=== PATIENT | female | born 1940 | race Caucasian/White ===

== ENCOUNTER 2022-09-15 14:11 | Observation (INO) | payer OTHER, MEDICAID, SELFPAY ==
[2022-09-15] VITALS (10 sets, daily range): BP systolic 139–185; BP diastolic 71–95; PULSE 61–86; RESP 15–20; TEMP 36.4–36.8; O2SAT 80–95; BMI 26.6
--- NOTE | 2022-09-15 14:28 | CRLHL7_ITS ---
For Patients: As a result of the Cures Act, medical imaging exams and procedure reports are released immediately into your electronic medical record. You may view this report before your referring provider. If you have questions, please contact your health care provider. Indication: Fall. Technique: Right shoulder 2 views. Comparison: None. Findings: Acute, comminuted, mildly displaced, impaction fracture of the right humeral neck. The glenohumeral joint is congruent. Moderate acromioclavicular joint arthrosis. Questionable right posterior 3rd rib fracture, age-indeterminate. The remainder of the imaged thorax is unremarkable. Impression: Acute, mildly displaced, impaction fracture of the right humeral neck. No dislocation. Questionable age-indeterminate right posterior 3rd rib fracture Dictated by Wiley Dunham MD @ 09/15/2022 3:43:27 PM (Electronically Signed)
--- NOTE | 2022-09-15 14:29 | CRLHL7_ITS ---
For Patients: As a result of the Century Cures Act, medical imaging exams and procedure reports are released immediately into your electronic medical record. You may view this report before your referring provider. If you have questions, please contact your health care provider. INDICATION: Fall, injury TECHNIQUE: CT head without contrast. COMPARISON: None. FINDINGS: CSF spaces: Within normal limits for age. Brain parenchyma: No intracranial bleed or mass effect. Cerebral atrophy with moderate low-density in the deep white matter. Arndt-white differentiation is normal. Skull base and calvarium: Opacified right maxillary sinus. Atherosclerosis. The visualized orbits are grossly unremarkable. No skull fractures. IMPRESSION: 1. No calvarial fracture or intracranial bleed. 2. Cerebral atrophy with nonspecific white matter disease, likely microangiopathy. 3. Right maxillary sinus disease. Please note that all CT scans at this facility use dose modulation, iterative reconstruction, and/or weight-based dosing when appropriate to reduce radiation dose to as low as reasonably achievable. Dictated by Rishabh Ace MD @ 09/15/2022 3:32:30 PM (Electronically Signed)
--- NOTE | 2022-09-15 14:29 | CRLHL7_ITS ---
For Patients: As a result of the Cures Act, medical imaging exams and procedure reports are released immediately into your electronic medical record. You may view this report before your referring provider. If you have questions, please contact your health care provider. INDICATION: Fall, injury TECHNIQUE: CT cervical spine without contrast. COMPARISON: None FINDINGS: Vertebrae: Alignment is normal. There are no fractures or suspicious bony lesions. Discs and facet joints: Facet hypertrophy C2-3 without significant stenosis. Facet hypertrophy with posterior osteophytes at C3-4 causing moderate left foraminal stenosis. Facet hypertrophy C4-5 causing mild left foraminal stenosis. Facet hypertrophy C5-6 with mild bilateral foraminal stenosis. Facet hypertrophy with posterior osteophytes at C6-7 causing moderate right foraminal stenosis. Facet hypertrophy C7-T1 without significant stenosis. Extraspinal findings: Atherosclerosis. IMPRESSION: Multilevel degenerative disc disease without evidence of cervical spine fracture. Please note that all CT scans at this facility use dose modulation, iterative reconstruction, and/or weight-based dosing when appropriate to reduce radiation dose to as low as reasonably achievable. Dictated by Rishabh Ace MD @ 09/15/2022 3:41:11 PM (Electronically Signed)
[2022-09-15] MEDS: HYDROmorphone 0.5 mg/0.5 ml inj IVP (14:53)
[2022-09-15 14:55] LABS: Basophils Absolute Auto 0.01 K/uL (0.00-0.30); Basophils Percent Auto 0.1 % (0.0-3.0); Eosinophils Absolute Auto 0.24 K/uL (0.00-0.50); Eosinophils Percent Auto 2.2 % (0.0-7.0); Hematocrit 45.9 % (33.0-51.0); Hemoglobin* 14.8 gm/dL (12.0-16.0); Immature Granulocytes Abs Auto 0.04 K/uL (0.00-0.30); Immature Granulocytes Pct Auto 0.4 %; Lymphocytes Percent Auto 19.2 % (20-44); Mean Corpuscular HGB Conc 32 gm/dL (32-36); Mean Corpuscular Hemoglobin 29 pg (26-34); Mean Corpuscular Volume 90 fL (80-100); Monocytes Percent Auto 5.7 % (0.0-11.0); Neutrophils Percent Auto 72.4 % (42.0-72.0); Platelet Count* 238 K/uL (140-440); RDW Coefficient of Variation % 12.7 % (11.5-15.5); Red Blood Count 5.09 m/uL (4.00-5.20); White Blood Count* 10.97 K/uL (4.50-11.00)
--- NOTE | 2022-09-15 14:55 | ED.UPPEXIN ---
HPI - Extremity Injury (Upper) General Date Seen: 09/15/22 Chief Complaint: Extremity Pain/Injury, Upper Stated Complaint: Fall R shoulder pain Time Seen by Provider: 09/15/22 14:20 Source: patient Mode of arrival: ambulatory Limitations: no limitations History of Present Illness HPI narrative: Patient is an 82-year-old female presents [facility] by EMS [facility] [place], she fell from the wheelchair onto the floor. Onto her right shoulder, she is not complaining of any head or neck pain is comparing vehemently of pain in her right shoulder, EMS did not give her anything for pain on the way over. She denies any other injury to her chest, arms, just whenever she moves her right extremity which she has dominant she describes pain. She said she may really slipped and fell out of her chair, she did not have a syncopal episode, complaint: injury to: right and shoulder Onset (ago): minute(s) Other injuries: none Hand dominance: Right Place: home Severity: moderate Relieving factors: none Exacerbating factors: movement of extremity Context: fall Associated symptoms: denies other symptoms Related Data Home Medications Medication Instructions Recorded Confirmed VITAMIN PO 09/15/22 albuterol sulfate 90 mcg/actuation 2 puff inhalation QID PRN dyspnea 09/15/22 09/15/22 aerosol inhaler amlodipine 5 mg tablet 5 mg PO DAILY blood pressure 09/15/22 09/15/22 aspirin 81 mg tablet,delayed 81 mg PO DAILY 09/15/22 09/15/22 release celecoxib 100 mg capsule 100 mg PO BID pain 09/15/22 09/15/22 famotidine 20 mg tablet 20 mg PO BID 09/15/22 09/15/22 ferrous sulfate 325 mg (65 mg 325 mg PO DAILY 09/15/22 09/15/22 iron) tablet (FeroSul) glipizide 5 mg tablet, extended 5 mg PO DAILY 09/15/22 09/15/22 release 24 hr insulin glargine 100 unit/mL (3 64 unit subcut DAILY 09/15/22 09/15/22 mL) subcutaneous pen (Lantus Solostar U-100 Insulin) lisinopril 40 mg tablet 40 mg PO DAILY blood pressure 09/15/22 09/15/22 metoprolol succinate 50 mg 50 mg PO DAILY blood pressure 09/15/22 09/15/22 tablet,extended release 24 hr omeprazole 20 mg capsule,delayed 20 mg PO DAILY 09/15/22 09/15/22 release sertraline 100 mg tablet 100 mg PO DAILY depressive disorder 09/15/22 09/15/22 simvastatin 20 mg tablet 20 mg PO DAILY 09/15/22 09/15/22 Allergies Allergy/AdvReac Type Severity Reaction Status Date / Time bupropion [From Wellbutrin] Allergy Verified 09/15/22 14:46 morphine Allergy Verified 09/15/22 14:46 Sulfa (Sulfonamide Allergy Verified 09/15/22 14:46 Antibiotics) Review of Systems Status of ROS: Reports: 10 or more systems reviewed and unremarkable except as noted in History and below PFSH PFS Social History Smoking Status: Never smoker How often do you have a drink containing alcohol: never AUDIT-C Alcohol total score: 0 Non-prescribed substance use: denies use Exam Narrative: Exam Narrative: Patient is a very nice 82-year-old female, describing pain in her right shoulder, her shoulder so some swelling on the right shoulder, I might ate about really examine her right extremity, due to pain, I am able the however stabilize her elbow when she can not move her lower arm, through full range of motion, both flexion extension supination pronation there is no evident injury to the right wrist, 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 No evidence of any pain on palpation of her back but she is complaining bitterly of pain in her right shoulder when I asked her to set up. Will palpable and percussion reviews not pain over her cervical spine or thoracic area, her abdomen is soft there is no guarding obesity is noted, she moves all lower extremities independently and well. Const: Vital Signs, click to edit/add: Vital Signs - 24 hr 09/15/22 14:14 09/15/22 14:58 09/15/22 15:27 Temperature 98.2 F Pulse Rate 76 Pulse Rate [Right Pulse Oximeter] 61 Respiratory Rate 18 Blood Pressure 139/95 H Blood Pressure [Le ft Upper Arm] 185/73 H Pulse Oximetry 95 85 L Oxygen Delivery Me thod Room Air Oxygen Flow Rate 09/15/22 15:30 09/15/22 16:00 09/15/22 16:30 Temperature Pulse Rate 69 78 83 Pulse Rate [Right Pulse Oximeter] Respiratory Rate Blood Pressure Blood Pressure [Le ft Upper Arm] Pulse Oximetry 85 L 92 93 Oxygen Delivery Me thod Oxygen Flow Rate 09/15/22 15:27 Temperature Pulse Rate Pulse Rate [Right Pulse Oximeter] Respiratory Rate Blood Pressure Blood Pressure [Le ft Upper Arm] Pulse Oximetry 80 L Oxygen Delivery Me thod Room Air Oxygen Flow Rate 2 Documenting provider has reviewed patient's vital signs: yes Course Reevaluation(s) Reevaluation #1: Patient is evidence of the humeral head fracture, appears to be no dislocation, given her status we will admit to the hospital put her in a sling, explained this to her. Did not see any evidence of abnormality on the CT. Vital Signs Vital signs: Initial Vital Signs Temperature 98.2 F 09/15/22 14:14 Temperature Source Temporal Artery Scan 09/15/22 14:14 Pulse Rate 61 09/15/22 14:14 Respiratory Rate 18 09/15/22 14:14 Blood Pressure 185/73 H 09/15/22 14:14 Blood Pressure Mean 110 09/15/22 14:14 Blood Pressure Position Supine 09/15/22 14:14 Pulse Oximetry 95 09/15/22 14:14 Oxygen Delivery Method 09/15/22 14:14 Vital Signs Temperature 98.2 F 09/15/22 14:14 Pulse Rate 61 09/15/22 14:14 Respiratory Rate 18 09/15/22 14:14 Blood Pressure 185/73 H 09/15/22 14:14 Pulse Oximetry 95 09/15/22 14:14 Oxygen Delivery Method 09/15/22 14:14 Temperature 98.2 F 09/15/22 14:14 Pulse Rate 83 09/15/22 16:30 Respiratory Rate 18 09/15/22 14:14 Blood Pressure 139/95 H 09/15/22 14:58 Pulse Oximetry 93 09/15/22 16:30 Oxygen Delivery Method 09/15/22 15:27 Oxygen Flow Rate 2 09/15/22 15:27 MDM - Extremity Injury (Upper) MDM Narrative Medical decision making narrative: Discussed with her that I believe she likely fractured right shoulder, most likely her humerus, could not rule out a clavicular fracture, and x-rays needed, given the history of the fall and the power he did to cause this injury, I would recommend head and neck CT, which she was initially against, but then agreed to this. Medical Records Attestation: I reviewed the patient's medical records. Lab Data Attestation: I reviewed the patient's lab results. Labs: Lab Results 09/15/22 09/15/22 09/15/22 Range/Units 14:40 14:40 14:40 WBC 10.97 (4.50-11.00) K/uL RBC 5.09 (4.00-5.20) m/uL Hgb 14.8 (12.0-16.0) gm/dL Hct 45.9 (33.0-51.0) % MCV 90 (80-100) fL MCH 29 (26-34) pg MCHC 32 (32-36) gm/dL RDW Coeff of Amy 12.7 (11.5-15.5) % Plt Count 238 (140-440) K/uL Neut % (Auto) 72.4 H (42.0-72.0) % Lymph % (Auto) 19.2 L (20-44) % Hendricks % (Auto) 5.7 (0.0-11.0) % Eos % (Auto) 2.2 (0.0-7.0) % Baso % (Auto) 0.1 (0.0-3.0) % Neut # (Auto) 7.90 H (1.7-7.0) K/uL Lymph # (Auto) 2.10 (0.90-2.90) K/uL Hendricks # (Auto) 0.60 (0.00-0.90) K/UL Eos # (Auto) 0.24 (0.00-0.50) K/uL Baso # (Auto) 0.01 (0.00-0.30) K/uL INR 0.90 L (0.91-1.10) APTT 20 L (23-33) Seconds Sodium 136 (135-149) mmol/L Potassium 4.8 (3.6-5.1) mmol/L Chloride 99 (96-114) mmol/L Carbon Dioxide 30 (20-32) mmol/L BUN 23 (7-30) mg/dL Creatinine 0.8 (0.5-1.5) mg/dL Estimated Creat Clear 37.68 Estimated GFR 73 ml/min Glucose 394 H* (60-115) mg/dL Calcium 9.8 (8.4-10.6) mg/dL SARS-CoV-2 (PCR) (Negative) 09/15/22 Range/Units 15:58 WBC (4.50-11.00) K/uL RBC (4.00-5.20) m/uL Hgb (12.0-16.0) gm/dL Hct (33.0-51.0) % MCV (80-100) fL MCH (26-34) pg MCHC (32-36) gm/dL RDW Coeff of Amy (11.5-15.5) % Plt Count (140-440) K/uL Neut % (Auto) (42.0-72.0) % Lymph % (Auto) (20-44) % Hendricks % (Auto) (0.0-11.0) % Eos % (Auto) (0.0-7.0) % Baso % (Auto) (0.0-3.0) % Neut # (Auto) (1.7-7.0) K/uL Lymph # (Auto) (0.90-2.90) K/uL Hendricks # (Auto) (0.00-0.90) K/UL Eos # (Auto) (0.00-0.50) K/uL Baso # (Auto) (0.00-0.30) K/uL INR (0.91-1.10) APTT (23-33) Seconds Sodium (135-149) mmol/L Potassium (3.6-5.1) mmol/L Chloride (96-114) mmol/L Carbon Dioxide (20-32) mmol/L BUN (7-30) mg/dL Creatinine (0.5-1.5) mg/dL Estimated Creat Clear Estimated GFR ml/min Glucose (60-115) mg/dL Calcium (8.4-10.6) mg/dL SARS-CoV-2 (PCR) Negative SARS-CoV-2 (Negative) Imaging Data CT scan - head: Attestation: I have reviewed the pertinent imaging results. My impression: Negative head CT, chronic changes seen and cervical spine CT humeral head fracture. Radiologist's impression: Patient: MAHNAZ CARBALLO Facility:?[facility] Patient ID:?[id number] Site Patient ID:?[id number]. Site :?[id number] Study:?CT Head WO-09/15/2022 3:16:45 PM Ordering Physician:Dalila Jaramillo Final Report: INDICATION: Fall, injury TECHNIQUE: CT head without contrast. COMPARISON: None. FINDINGS: CSF spaces: Within normal limits for age. Brain parenchyma: No intracranial bleed or mass effect. Cerebral atrophy with moderate low-density in the deep white matter. Arndt-white differentiation is normal. Skull base and calvarium: Opacified right maxillary sinus. Atherosclerosis. The visualized orbits are grossly unremarkable. No skull fractures. IMPRESSION: 1. No calvarial fracture or intracranial bleed. 2. Cerebral atrophy with nonspecific white matter disease, likely microangiopathy. 3. Right maxillary sinus disease. Please note that all CT scans at this facility use dose modulation, iterative reconstruction, and/or weight-based dosing when appropriate to reduce radiation dose to as low as reasonably achievable. Dictated by Rishabh Ace MD @ 09/15/2022 3:32:30 PM (Electronic Signature) Patient: MAHNAZ CARBALLO Facility:?[facility] Patient ID:?[id number] Site Patient ID:?[id number]. Site :?[id number] Study:?CT Spine Cervical WO-09/15/2022 3:17:13 PM Ordering Physician:Dalila Jaramillo Final Report: INDICATION: Fall, injury TECHNIQUE: CT cervical spine without contrast. COMPARISON: None FINDINGS: Vertebrae: Alignment is normal. There are no fractures or suspicious bony lesions. Discs and facet joints: Facet hypertrophy C2-3 without significant stenosis. Facet hypertrophy with posterior osteophytes at C3-4 causing moderate left foraminal stenosis. Facet hypertrophy C4-5 causing mild left foraminal stenosis. Facet hypertrophy C5-6 with mild bilateral foraminal stenosis. Facet hypertrophy with posterior osteophytes at C6-7 causing moderate right foraminal stenosis. Facet hypertrophy C7-T1 without significant stenosis. Extraspinal findings: Atherosclerosis. IMPRESSION: Multilevel degenerative disc disease without evidence of cervical spine fracture. Please note that all CT scans at this facility use dose modulation, iterative reconstruction, and/or weight-based dosing when appropriate to reduce radiation dose to as low as reasonably achievable. Dictated by Rishabh Ace MD @ 09/15/2022 3:41:11 PM (Electronic Signature) Patient: MAHNAZ CARBALLO Facility:?[facility] Patient ID:?[id number] Site Patient ID:?[id number]. Site :?[id number] Study:?XRay Shoulder Right 2V-09/15/2022 3:22:05 PM Ordering Physician:Dalila Jaramillo Final Report: Indication: Fall. Technique: Right shoulder 2 views. Comparison: None. Findings: Acute, comminuted, mildly displaced, impaction fracture of the right humeral neck. The glenohumeral joint is congruent. Moderate acromioclavicular joint arthrosis. Questionable right posterior 3rd rib fracture, age-indeterminate. The remainder of the imaged thorax is unremarkable. Impression: Acute, mildly displaced, impaction fracture of the right humeral neck. No dislocation. Questionable age-indeterminate right posterior 3rd rib fracture Dictated by Wiley Dunham MD @ 09/15/2022 3:43:27 PM Discharge Plan Discharge Clinical Impression: Closed rib fracture, Fracture of head of humerus Patient Disposition: Admitted As Inpatient Condition: Stable
[2022-09-15 15:13] LABS: Slide Review Reflex No
[2022-09-15 15:16] LABS: Chloride* 99 mmol/L (96-114); Potassium* 4.8 mmol/L (3.6-5.1); Sodium* 136 mmol/L (135-149)
[2022-09-15 15:18] LABS: Prothrombin Time 12.7 Seconds
[2022-09-15 15:19] LABS: Blood Urea Nitrogen* 23 mg/dL (7-30); Carbon Dioxide* 30 mmol/L (20-32); Creatinine* 0.8 mg/dL (0.5-1.5); Est. Creatinine Clearance* 37.68; Estimated Glomerular Filt Rate 73 ml/min; Partial Thromboplastin Time* 20 Seconds (23-33)
[2022-09-15 15:20] LABS: Calcium* 9.8 mg/dL (8.4-10.6)
[2022-09-15 15:21] LABS: Glucose* 394 mg/dL (60-115)
[2022-09-15] MEDS: ONDANSETRON 2 MG/ML inj 4 MG IVP (15:26)
[2022-09-15 16:38] LABS: SARS PCR* Negative SARS-CoV-2 (Negative)
--- NOTE | 2022-09-15 18:40 | P.IMHP_ITS ---
Hospitalist- H&P: HPI History of Present Illness Time Seen by Provider: 18:00 Date Seen: 09/15/22 Chief complaint: Fall R shoulder pain Narrative: Faina Nation is a 82 year old female who presented through the emergency department after a fall. She is still healing from a right pubic rami fracture about a month and a half ago and was using her walker to get to the bathroom. On the way back from the bathroom she was transferring from the walker into the chair when her legs got twisted around in the walker and she fell onto her right shoulder. She has pain only in the right shoulder itself and no where else. She denies hitting her head or loss of consciousness. He denies any recent illness. She notes that it has been more difficult for her to live on her own because she tries to be really careful, but she still falls. She tells me that she is not ready to move into assisted living yet though. She notes that even with the pubic rami fracture she did not need to go to a custodial, but was able to go right back home. She did spend some time at the [facility] last month after that fall, but requested to come to our ER instead because she does not like the [facility]. Review of Systems Status of ROS: Reports: 10 or more systems reviewed and unremarkable except as noted in History and below [facility] Medical History (Updated 09/15/22 @ 20:18 by Lexus Gomez MD) Cerebral atrophy Closed fracture of ramus of right pubis (~08/01/22) COPD (chronic obstructive pulmonary disease) Dementia Depression Diabetes 1.5, managed as type 1 Fall (~06/25/22) Fibula fracture (~08/01/22) GERD (gastroesophageal reflux disease) Gout Hyperlipidemia Hypertension Hypomagnesemia Iron deficiency anemia Left rib fracture (~08/01/22) Leg weakness Spinal stenosis Splenic artery aneurysm Urinary incontinence UTI (urinary tract infection) (~08/01/22) Vitamin D deficiency Family History (Updated 09/15/22 @ 17:51 by Lexus Gomez MD) Father Colon cancer Sister Diabetes Brother Throat cancer Social History (Updated 09/15/22 @ 18:44 by Lexus Gomez MD) Narrative: Living in a senior apartment at [facility]. She has help with medications and cleaning. Denies tob, EtOH, recreational drugs. POLST states DNR/DNI. Highest level of school completed/degree received: high school graduate Smoking Status: Never smoker How often do you have a drink containing alcohol: never AUDIT-C Alcohol total score: 0 Non-prescribed substance use: denies use Meds Home Medications and Allergies Home Medications Medication Instructions Recorded Confirmed Type albuterol sulfate 90 mcg/actuation 2 puff inhalation QID PRN dyspnea 09/15/22 09/15/22 History aerosol inhaler amlodipine 5 mg tablet 5 mg PO DAILY blood pressure 09/15/22 09/15/22 History aspirin 81 mg tablet,delayed 81 mg PO DAILY 09/15/22 09/15/22 History release bismuth subsalicylate 262 mg 2 tab PO Q6H PRN diarrhea 09/15/22 09/15/22 History chewable tablet (Bismatrol) calcium carbonate 300 mg (750 mg) 1 tab PO Q6H PRN 09/15/22 09/15/22 History chewable tablet (Antacid Extra Strength (calcium carb)) celecoxib 100 mg capsule 100 mg PO BID pain 09/15/22 09/15/22 History cholecalciferol (vitamin D3) 125 125 mcg PO DAILY 09/15/22 09/15/22 History mcg (5,000 unit) capsule famotidine 20 mg tablet 20 mg PO DAILY 09/15/22 09/15/22 History ferrous sulfate 325 mg (65 mg 325 mg PO DAILY 09/15/22 09/15/22 History iron) tablet (FeroSul) fluticasone furoate 200 1 ea inhalation DAILY 09/15/22 09/15/22 History mcg-vilanterol 25 mcg/dose inhalation powder (Breo Ellipta) glipizide 5 mg tablet, extended 5 mg PO DAILY 09/15/22 09/15/22 History release 24 hr insulin glargine 100 unit/mL (3 64 unit subcut Q24H 09/15/22 09/15/22 History mL) subcutaneous pen (Lantus Solostar U-100 Insulin) lisinopril 40 mg tablet 40 mg PO DAILY blood pressure 09/15/22 09/15/22 History loperamide 2 mg tablet 2 mg PO QID PRN 09/15/22 09/15/22 History (Anti-Diarrheal (loperamide)) metoprolol succinate 50 mg 50 mg PO DAILY blood pressure 09/15/22 09/15/22 History tablet,extended release 24 hr omeprazole 20 mg capsule,delayed 20 mg PO DAILY 09/15/22 09/15/22 History release oxycodone 5 mg tablet 5 mg PO Q4H PRN moderate pain 09/15/22 09/15/22 History polyethylene glycol 3350 17 gram 17 g PO DAILY 09/15/22 09/15/22 History oral powder packet (Gavilax) sertraline 100 mg tablet 100 mg PO DAILY depressive disorder 09/15/22 09/15/22 History simvastatin 20 mg tablet 20 mg PO DAILY 09/15/22 09/15/22 History tizanidine 2 mg tablet 2 mg PO Q8H PRN muscle spasm 09/15/22 09/15/22 History Allergies Allergy/AdvReac Type Severity Reaction Status Date / Time bupropion [From Wellbutrin] Allergy Verified 09/15/22 14:46 morphine Allergy Verified 09/15/22 14:46 Sulfa (Sulfonamide Allergy Verified 09/15/22 14:46 Antibiotics) Exam Narrative: Exam Narrative: General: No acute distress. Sleeping, arousable, oriented x3. HEENT: Normocephalic atraumatic, pupils equally round and reactive to light and accommodation. Oropharynx clear. Mucous membranes are moist. No cervical lymphadenopathy, thyromegaly or carotid bruits. No JVD. Cardiovascular: Regular rate and rhythm. No murmurs, gallops, or rubs. Chest: No increased work of breathing. Clear to auscultation bilaterally. No crackles or wheezes. Abdomen: Bowel sounds present. Soft, nondistended, nontender. No hepatosplenomegaly or masses. Extremities: Right upper extremity is in a sling. Neurovascularly intact. No edema, no cyanosis or clubbing. Skin: No jaundice, no pallor, candidal rash in the skin folds of the breasts and groin. Neuro: Unable to assess right upper arm due to fractured humerus. Otherwise grossly intact. No focal deficits. Const: Vital Signs, click to edit/add: Vital Signs - 24 hr 09/15/22 14:14 09/15/22 14:58 09/15/22 15:27 Temperature 98.2 F Pulse Rate 76 Pulse Rate [Right Pulse Oximeter] 61 Respiratory Rate 18 Blood Pressure 139/95 H Blood Pressure [Le ft Upper Arm] 185/73 H Pulse Oximetry 95 85 L Oxygen Delivery Me thod Room Air Oxygen Flow Rate 09/15/22 15:30 09/15/22 16:00 09/15/22 16:30 Temperature Pulse Rate 69 78 83 Pulse Rate [Right Pulse Oximeter] Respiratory Rate Blood Pressure Blood Pressure [Le ft Upper Arm] Pulse Oximetry 85 L 92 93 Oxygen Delivery Me thod Oxygen Flow Rate 09/15/22 15:27 Temperature Pulse Rate Pulse Rate [Right Pulse Oximeter] Respiratory Rate Blood Pressure Blood Pressure [Le ft Upper Arm] Pulse Oximetry 80 L Oxygen Delivery Me thod Room Air Oxygen Flow Rate 2 Hospitalist - H&P: Result Labs Labs: Short CBC 09/15/22 Range/Units 14:40 WBC 10.97 (4.50-11.00) K/uL Hgb 14.8 (12.0-16.0) gm/dL Hct 45.9 (33.0-51.0) % Plt Count 238 (140-440) K/uL BMP 09/15/22 14:40 Sodium 136 Potassium 4.8 Chloride 99 Carbon Dioxide 30 BUN 23 Creatinine 0.8 Glucose 394 H* Calcium 9.8 Ordering Physician: Clint Jaimes M.D. Date of Service: 09/15/22 Procedure(s): XR shoulder RT min 2V Accession Number(s): [id number] cc: Linette Buckner M.D.; Clint Jaimes M.D.~ For Patients: As a result of the Cures Act, medical imaging exams and procedure reports are released immediately into your electronic medical record. You may view this report before your referring provider. If you have questions, please contact your health care provider. Indication: Fall. Technique: Right shoulder 2 views. Comparison: None. Findings: Acute, comminuted, mildly displaced, impaction fracture of the right humeral neck. The glenohumeral joint is congruent. Moderate acromioclavicular joint arthrosis. Questionable right posterior 3rd rib fracture, age-indeterminate. The remainder of the imaged thorax is unremarkable. Impression: Acute, mildly displaced, impaction fracture of the right humeral neck. No dislocation. Questionable age-indeterminate right posterior 3rd rib fracture Dictated by Wiley Dunham MD @ 09/15/2022 3:43:27 PM (Electronically Signed) Ordering Physician: Clint Jaimes M.D. Date of Service: 09/15/22 Procedure(s): CT cervical spine wo con Accession Number(s): [id number] cc: Linette Buckner M.D.; Clint Jaimes M.D.~ For Patients: As a result of the Cures Act, medical imaging exams and procedure reports are released immediately into your electronic medical record. You may view this report before your referring provider. If you have questions, please contact your health care provider. INDICATION: Fall, injury TECHNIQUE: CT cervical spine without contrast. COMPARISON: None FINDINGS: Vertebrae: Alignment is normal. There are no fractures or suspicious bony lesions. Discs and facet joints: Facet hypertrophy C2-3 without significant stenosis. Facet hypertrophy with posterior osteophytes at C3-4 causing moderate left foraminal stenosis. Facet hypertrophy C4-5 causing mild left foraminal stenosis. Facet hypertrophy C5-6 with mild bilateral foraminal stenosis. Facet hypertrophy with posterior osteophytes at C6-7 causing moderate right foraminal stenosis. Facet hypertrophy C7-T1 without significant stenosis. Extraspinal findings: Atherosclerosis. IMPRESSION: Multilevel degenerative disc disease without evidence of cervical spine fracture. Please note that all CT scans at this facility use dose modulation, iterative reconstruction, and/or weight-based dosing when appropriate to reduce radiation dose to as low as reasonably achievable. Dictated by Rishabh Ace MD @ 09/15/2022 3:41:11 PM (Electronically Signed) Ordering Physician: Clint Jaimes M.D. Date of Service: 09/15/22 Procedure(s): CT head/brain wo con Accession Number(s): [id number] cc: Clint Jaimes M.D.~ For Patients:? As a result of the Cures Act, medical imaging exams and procedure reports are released immediately into your electronic medical record.? You may view this report before your referring provider.? If you have questions, please contact your health care provider. INDICATION: Fall, injury TECHNIQUE: CT head without contrast. COMPARISON: None. FINDINGS: CSF spaces: Within normal limits for age.? Brain parenchyma: No intracranial bleed or mass effect. Cerebral atrophy with moderate low-density in the deep white matter. Arndt-white differentiation is normal. Skull base and calvarium: Opacified right maxillary sinus. Atherosclerosis. The visualized orbits are grossly unremarkable.? No skull fractures.? IMPRESSION: 1. No calvarial fracture or intracranial bleed. 2. Cerebral atrophy with nonspecific white matter disease, likely microangiopathy. 3. Right maxillary sinus disease. Please note that all CT scans at this facility use dose modulation, iterative reconstruction, and/or weight-based dosing when appropriate to reduce radiation dose to as low as reasonably achievable. Dictated by Rishabh Ace MD @ 09/15/2022 3:32:30 PM (Electronically Signed) Assessment and Plan Assessment and plan (1) Fracture of head of humerus: Problem comment: Acute, mildly displaced, impaction fracture of the right humeral neck. No dislocation. - Continue sling. I have ordered PT/OT for this and for fall: gait/balance ev aluation. Status: Acute (2) Closed rib fracture: Problem comment: Questionable age-indeterminate right posterior 3rd rib fracture on Xray - Patient denies pain other than in right shoulder, but pain from humerus fracture may be difficult to distinguish and may be masking this. She is requiring some oxygen, but that may be due to opioids for pain. Monitor. Status: Acute (3) Fall: Problem comment: This is her second fall in 2 months, both associated with fractures. I spoke with her about assisted living, but she is hesitant and says she's not ready to give up her independence. She understands she may need SNF for rehab since she uses a walker, which will be a challenge with a humerus fracture. Consult SW. Status: Acute (4) COPD (chronic obstructive pulmonary disease): Problem comment: stable Status: Chronic (5) Dementia: Problem comment: appears mild Status: Chronic (6) Closed fracture of ramus of right pubis: Problem comment: 08/01/22. Doing well from this standpoint. PT/OT evaluation. Status: Acute (7) Hypertension: Problem comment: Hypertensive tonight. Continue home meds. Status: Chronic (8) Diabetes 1.5, managed as type 1: Problem comment: Continue home meds. I have also ordered an ISS with meals and at bedtime. Status: Chronic
[2022-09-15] MEDS: OXYCODONE 5 MG TABLET PO (20:41)
[2022-09-15] MEDS: NYSTATIN POWDER 1 APPLIC TOPICAL (22:15)
--- NOTE | 2022-09-15 23:05 | PC.NURSE ---
Nursing Care Hours: [id number] Pt this shift up from ED after a fall at home. Alert and oriented, calm and cooperative. R arm in sling, c/o pain 4/10 upon arrival then 10/10 at HS, treated per eMAR and ice applied. Upon arrival, pt incontinent of bowel and bladder, urine has very strong odor. Red rash noted bilat groins and under abdomen fold. Treated per eMAR. BP elevated 165/77, O2 92% on 1.5L NC. Pt states they use walker at home to get to bathroom. Unsure of being able to ambulate at this time and agreed to try the BSC. Calls appropriately, CMS intact.
[2022-09-15] MEDS: SODIUM CHLORIDE 0.9 % (FLUSH) 10 ML SYRINGE 5 ML IVF (23:43)
[2022-09-16] VITALS (7 sets, daily range): BP systolic 113–163; BP diastolic 53–71; PULSE 73–81; RESP 18–24; TEMP 36–36.5; O2SAT 91–94
[2022-09-16 01:39] LABS: Appearance Urine Cloudy (Clear); Bilirubin Urine Negative (Negative); Blood Urine Negative (Negative); Color Urine Yellow (Yellow); Glucose Urine 3+ (Negative); Ketones Urine Negative (Negative); Leukocyte Esterase Urine Negative (Negative); Nitrite Urine Positive (Negative); Protein Urine Negative (Negative); Specific Gravity Urine >= 1.030 (1.000-1.030); Urobilinogen Urine 0.2 (0.2-1.0)
[2022-09-16 01:47] LABS: Amorphous Sediment Urine Few; Bacteria Urine Moderate; Mucus Urine Few; RBC Urine 0-2 (0-2); Squamous Epithelial Cell Urine Moderate (None-Few)
--- NOTE | 2022-09-16 06:49 | PC.NURSE ---
Pt alert and oriented x3. Afebrile. Pt denies?pain in right?shoulder,?cold?pack is applied per pt request. Pt?s right?shoulder?area?is warm and pink, she feels sensation and is able to move fingers, cap refill is <3 secs. Pt is up A2 pivot to [facility]. Around 0130 during transfer from bed to [facility] pt felt nauseous and started to dry heave when sitting, emesis bag was provided, pt did not have any production, vital signs were checked but all were within normal limits.?Pt was transferred back to bed and offered?PRN medications for nausea but pt reported she was no longer nauseous. Pt reported scalp felt dry, provided shower cap and combed pt's hair, pt stated I feel much better now. Pt is tolerating a regular diet. Pt denies chest pain. Pt reports SOB with exertion, pt is on 1.5L of oxygen at rest, pt 02 sats have been between 91-94%.?Pt slept throughout most of night. ?
[2022-09-16] MEDS: SIMVASTATIN 20 MG TABLET PO (09:01)
[2022-09-16] MEDS: METOPROLOL SUCCINATE (XL) 50 MG TAB PO (09:02)
[2022-09-16] MEDS: ASPIRIN 81 MG TABLET EC PO (09:02)
[2022-09-16] MEDS: OMEPRAZOLE 20 MG CAPSULE DR PO (09:02)
[2022-09-16] MEDS: FAMOTIDINE 20 MG TABLET PO (09:02)
[2022-09-16] MEDS: SERTRALINE 100 MG TABLET PO (09:03)
[2022-09-16] MEDS: polyethylene glycoL 3350 17 GM PACK PO (09:03)
[2022-09-16] MEDS: FERROUS SULFATE 325 MG TABLET PO (09:03)
[2022-09-16] MEDS: NYSTATIN POWDER 1 APPLIC TOPICAL ×2 (09:05→21:41)
--- NOTE | 2022-09-16 09:12 | P.IMPN_ITS ---
Progress Note: A&P Assessment and plan (1) Fracture of head of humerus: Problem details: - Acute, mildly displaced, impaction fracture of the right humeral neck. No dislocation, non operative per Orthopedic surgery team - Continue sling, PT and OT following Status: Acute (2) Closed rib fracture: Problem details: - Questionable age-indeterminate right posterior 3rd rib fracture on admission imaging - Patient continues to deny pain in rib area, requiring low-dose supplemental oxygen - continue to follow clinically, adding IS Status: Acute (3) Fall: Problem details: - patient has no fallen twice in the past 2 months, both falls associated with fractures - she believes falls are purely mechanical. Of note, UA +, awaiting culture results prior to treatment given asymptomatic status - SNF stay recommended, appreciate input from therapies and social work Status: Acute (4) COPD (chronic obstructive pulmonary disease): Problem details: - stable Status: Chronic (5) Dementia: Problem details: - appears mild, no delirium or agitation Status: Chronic (6) Closed fracture of ramus of right pubis: Problem details: - after fall 08/01/22. Doing well from this standpoint. PT/OT evaluation. Status: Acute (7) Hypertension: Problem details: - continue home medications with holding parameters given intermittent hypotension Status: Chronic (8) Diabetes 1.5, managed as type 1: Problem details: - Continue home meds with SSI Status: Chronic Plan - per above - ASA, SCDs, and ambulation for prophylaxis - will require higher level of care upon discharge - daughter updated at bedside, questions answered Subjective Date Seen: 09/16/22 Interval history: No acute events overnight. Of lying continues to have intermittent pain her right shoulder, worse with activity. She is not having any chest pain, breathing comfortably but did require supplemental oxygen overnight. She has no other concerns for the hospitalist team. Exam Narrative: Exam Narrative: GEN: Alert and oriented, answering questions appropriately HEENT: Normal external ears, EOMIs bilaterally, no scleral icterus CV: RRR, No concerning murmurs, rubs, or gallops R: LCTA bilaterally without concerning wheezing, air movement adequate Ext: Wearing sling on right upper extremity, normal peripheral pulses Skin: No concerning skin lesions or rashes on exposed skin Neuro: No focal deficits Psych: Appropriate Const: Vital Signs, click to edit/add: Vital Signs - 24 hr 09/15/22 14:14 09/15/22 14:58 09/15/22 15:27 Temperature 98.2 F Pulse Rate 76 Pulse Rate [Left P ulse Oximeter] Pulse Rate [Right Pulse Oximeter] 61 Respiratory Rate 18 Blood Pressure 139/95 H Blood Pressure [Le ft Arm] Blood Pressure [Le ft Upper Arm] 185/73 H Pulse Oximetry 95 85 L Oxygen Delivery Me thod Room Air Oxygen Flow Rate 09/15/22 15:30 09/15/22 16:00 09/15/22 16:30 Temperature Pulse Rate 69 78 83 Pulse Rate [Left P ulse Oximeter] Pulse Rate [Right Pulse Oximeter] Respiratory Rate Blood Pressure Blood Pressure [Le ft Arm] Blood Pressure [Le ft Upper Arm] Pulse Oximetry 85 L 92 93 Oxygen Delivery Me thod Oxygen Flow Rate 09/15/22 15:27 09/15/22 17:51 09/15/22 17:51 Temperature Pulse Rate Pulse Rate [Left P ulse Oximeter] 69 Pulse Rate [Right Pulse Oximeter] Respiratory Rate 15 15 Blood Pressure Blood Pressure [Le ft Arm] 165/77 H Blood Pressure [Le ft Upper Arm] Pulse Oximetry 80 L 92 92 Oxygen Delivery Me thod Room Air Nasal Cannula Nasal Cannula Oxygen Flow Rate 2 2 1.5 09/15/22 18:33 09/15/22 23:00 09/15/22 23:00 Temperature Pulse Rate Pulse Rate [Left P ulse Oximeter] 69 Pulse Rate [Right Pulse Oximeter] Respiratory Rate 15 18 Blood Pressure Blood Pressure [Le ft Arm] Blood Pressure [Le ft Upper Arm] Pulse Oximetry 92 92 Oxygen Delivery Me thod Nasal Cannula Oxygen Flow Rate 1.5 09/15/22 23:50 09/16/22 03:10 Temperature 97.5 F L 97.5 F L Pulse Rate Pulse Rate [Left P ulse Oximeter] 86 81 Pulse Rate [Right Pulse Oximeter] Respiratory Rate 20 22 Blood Pressure Blood Pressure [Le ft Arm] 143/71 H 135/62 Blood Pressure [Le ft Upper Arm] Pulse Oximetry 92 93 Oxygen Delivery Me thod Nasal Cannula Nasal Cannula Oxygen Flow Rate 1.5 1 Labs Labs: Laboratory Results - last 24 hr 09/15/22 09/15/22 09/15/22 14:40 14:40 14:40 WBC 10.97 RBC 5.09 Hgb 14.8 Hct 45.9 MCV 90 MCH 29 MCHC 32 RDW Coeff of Amy 12.7 Plt Count 238 Neut % (Auto) 72.4 H Lymph % (Auto) 19.2 L [place] % (Auto) 5.7 Eos % (Auto) 2.2 Baso % (Auto) 0.1 Neut # (Auto) 7.90 H Lymph # (Auto) 2.10 [place] # (Auto) 0.60 Eos # (Auto) 0.24 Baso # (Auto) 0.01 INR 0.90 L APTT 20 L Sodium 136 Potassium 4.8 Chloride 99 Carbon Dioxide 30 BUN 23 Creatinine 0.8 Estimated Creat Clear 37.68 Estimated GFR 73 Glucose 394 H* Calcium 9.8 Urine Color Urine Appearance Urine pH Ur Specific [place] Urine Protein Urine Glucose (UA) Urine Ketones Urine Blood Urine Nitrite Urine Bilirubin Urine Urobilinogen Ur Leukocyte Esterase Urine RBC Urine WBC Ur Squamous Epith Cells Amorphous Sediment Urine Bacteria Urine Mucus SARS-CoV-2 (PCR) 09/15/22 09/16/22 15:58 01:30 WBC RBC Hgb Hct MCV MCH MCHC RDW Coeff of Amy Plt Count Neut % (Auto) Lymph % (Auto) [place] % (Auto) Eos % (Auto) Baso % (Auto) Neut # (Auto) Lymph # (Auto) [place] # (Auto) Eos # (Auto) Baso # (Auto) INR APTT Sodium Potassium Chloride Carbon Dioxide BUN Creatinine Estimated Creat Clear Estimated GFR Glucose Calcium Urine Color Yellow Urine Appearance Cloudy A Urine pH 5.0 Ur Specific [place] >= 1.030 Urine Protein Negative Urine Glucose (UA) 3+ A Urine Ketones Negative Urine Blood Negative Urine Nitrite Positive A Urine Bilirubin Negative Urine Urobilinogen 0.2 Ur Leukocyte Esterase Negative Urine RBC 0-2 Urine WBC 10-25 A Ur Squamous Epith Cells Moderate A Amorphous Sediment Few A Urine Bacteria Moderate A Urine Mucus Few A SARS-CoV-2 (PCR) Negative SARS-CoV-2
[2022-09-16] MEDS: OXYCODONE 5 MG TABLET PO ×3 (09:15→18:02)
[2022-09-16] MEDS: glipiZIDE XL 5 MG TAB PO (10:08)
[2022-09-16] MEDS: ACETAMINOPHEN 325 MG TABLET 975 MG PO ×3 (10:09→21:40)
--- NOTE | 2022-09-16 12:06 | PC.SOCIAL ---
Addendum entered by GERARDO Panchal 09/16/22 13:26: PAS completed # [id number] Original Note: Met with pt. and pt.'s daughter Maribeth to discuss discharge plans. Pt. resides at [facility] and receives assistance with escort to meals, cleaning, bathing, and medication assistance. The recommendation is a SNF. Family preferred placement at [address] [place] [address] but they do not accept [employer] insurance. Families next choice is the [facility] in [facility] or [facility] in [place]. Later spoke with pt.'s other daughter Danielle at [phone]. After more discussion family would like pt. to return to [facility] if they can accommodate. Spoke with BLANCA Sinclair at [facility] at [phone] who can accommodate if pt can safety pivot transfer with 1 person. Pt. had been indep. pivot transferring propr to her fall. Per therapies pt is a heavy 2 person to transfer. Updated Dottie at [facility] who is in agreement pt. needs to go to a SNF. Updated pt.'s daughter Shalini on pt.'s status. Pt. has been accepted to the [facility] pending [employer] auth. Pt. will need medical transport when accepted. Pt. has [place] for transport coverage.
[2022-09-16] MEDS: cefTRIAXone 1 GM in 0.9 % SODIUM CHLORIDE Mini-bag 100 ML IVPB (16:11)
--- NOTE | 2022-09-16 16:19 | PC.SOCIAL ---
Pt. received prior authorization from [employer] for placement at the [facility] for tomorrow. Non-emergency EMS is being set-up for 10-10:30. NATALEE montes. Received a call from resident's daughter Maribeth in the late afternoon that she cancelled pt.'s [employer] insurance so she can be admitted to [facility] where her brother and [id number] reside. [facility] does not accept [employer] insurance. A message was left with admissions at [facility] on availability for tomorrow and pt.'s information as sent to assess. Left a message for Maribeth updating her on this and that pt. has an accepting at the [facility] if [facility] is not able to accept. media services director will continue to work on discharge planning needs and update pt.'s daughter's Maribeth @ [phone] Danielle @ [phone] (who is currently in [place]) tomorrow as to which facility pt. will be discharged to.
--- NOTE | 2022-09-16 19:00 | PC.NURSE ---
Patient continues with right shoulder pain. Patient evaluated by therapist and carmel lift recommended for transfers. Patient incontinent of urine throughout shift. Patient pain controlled with oxycodone 10mg. Patient blood sugars elevated and patient covered with novolog throughout shift. Patient daughter at facility to visit today and states they are looking into 3 links for rehab for patient. Patient vitally stable. Patient lisinopril and amlodipine held this am and parameters placed by provider. Patient remains on 1-2 lpm of oxygen via n/c. Incentive spirometry introduced to patient but she refuses to use at this time.
[2022-09-16] MEDS: SODIUM CHLORIDE 0.9 % (FLUSH) 10 ML SYRINGE 5 ML IVF (21:44)
[2022-09-17] MEDS: OXYCODONE 5 MG TABLET PO ×3 (02:00→12:48)
[2022-09-17 02:30] VITALS: BP 128/82; PULSE 72; RESP 20; TEMP 36.6; O2SAT 93
[2022-09-17] MEDS: ACETAMINOPHEN 325 MG TABLET 975 MG PO (05:05)
[2022-09-17 07:00] VITALS: BP 105/46; PULSE 72; RESP 18; TEMP 36.4; O2SAT 100; O2SAT 99
--- NOTE | 2022-09-17 07:11 | PC.NURSE ---
Pt alert and oriented to self. Afebrile. Pt reports 10/10 pain in right shoulder, pain was managed?with PRN Oxycodone and cold pack is applied to right shoulder. Pt?s right shoulder area is warm and pink, she feels sensation and is able to move fingers, cap refill is <3 secs. Pt is up with ceiling lift to commode and chair. Pt is tolerating a regular diet. Pt denies chest pain. Pt reports SOB with exertion, pt is on 1.5 L of oxygen at rest, pt 02 sats have been between 90-94%. Pt slept throughout most of night. ?
[2022-09-17] MEDS: SERTRALINE 100 MG TABLET PO (08:56)
[2022-09-17] MEDS: ASPIRIN 81 MG TABLET EC PO (08:57)
[2022-09-17] MEDS: FERROUS SULFATE 325 MG TABLET PO (08:57)
[2022-09-17] MEDS: FAMOTIDINE 20 MG TABLET PO (08:57)
[2022-09-17] MEDS: OMEPRAZOLE 20 MG CAPSULE DR PO (08:57)
[2022-09-17] MEDS: METOPROLOL SUCCINATE (XL) 50 MG TAB PO (08:57)
[2022-09-17] MEDS: NYSTATIN POWDER 1 APPLIC TOPICAL (08:59)
[2022-09-17] MEDS: SODIUM CHLORIDE 0.9 % (FLUSH) 10 ML SYRINGE 5 ML IVF (09:00)
[2022-09-17] MEDS: glipiZIDE XL 5 MG TAB PO (09:00)
[2022-09-17] MEDS: SIMVASTATIN 20 MG TABLET PO (09:02)
[2022-09-17 09:24] VITALS: BP 139/95; PULSE 83; RESP 20; TEMP 36.6
[2022-09-17 09:29] VITALS: BP 139/95; PULSE 83; RESP 20; TEMP 36.6
--- NOTE | 2022-09-17 09:34 | PC.SOCIAL ---
Discharge plan: Met with dtr, Maribeth Finney, this morning, who states that the family has been contacted by the sales account coordinator, Carissa, at [facility] who stated pt can be admitted there this morning. Called Carissa at [facility] who confirms they can accept pt there this morning at 10:00. Carissa is aware that pt currently has [employer] insurance and that family has requested through the insurance to have that changed from [employer]. Carissa aknowledges that prior authorization from [employer] [facility] for [facility]. Carissa states she has spoken with the family regarding the insurance and they are accepting pt today with the current insurance situation as explained by the family. Met with dtrMaribeth, and confirmed that they are aware insurance does not typically change until the first of the next month when the request is placed. Maribeth states they are aware of this and still wants the patients to be discharged to [facility] today. Maribeth is requesting non-emergency transportation. Per RN, this likely meets criteria for insurance coverage of the transportation. Informed dtr of private pay cost in case this is not covered. Dtr agreed to pay this cost if needed and continues to request this transportation be arranged. Called [facility] and left message informing them pt is going to another facility. Called [facility] and [facility] in the [facility] system. [facility]# [id number].
--- NOTE | 2022-09-17 09:40 | PC.NURSE ---
Discharge Note: Patient is discharging and going to [facility]. Called and gave nurse to nurse report all questions have been answered and currently awaiting non emergent transport to take patient to destination.
--- NOTE | 2022-09-17 11:24 | PC.NURSE ---
METAL HANDLER CALLED NURSE AT [facility] TO UPDATE NEW LAB RESULT RE: URINE CULTURE ESBL POSITIVE, E. COLI ISOLATED RESULT.
[2022-09-17] MEDS: CIPROFLOXACIN 250 MG TABLET PO (11:49)
--- NOTE | 2022-09-17 13:46 | PM.DS1 ---
DS: Providers Provider Date Seen: 09/17/22 Date of admission: 09/15/22 16:47 Primary care physician: Linette Buckner MD Admitting Clinician: Lexus Gomez MD Attending Physician on discharge: Lexus Gmoez MD Date of Discharge: 09/17/22 DS: Diagnosis Discharge Diagnosis (1) Fracture of head of humerus: Status: Acute Problem details: - Acute, mildly displaced, impaction fracture of the right humeral neck. No dislocation, non operative per Orthopedic surgery team - Continue sling, PT and OT following. Take forearm out of sling twice a day to straighten the elbow. Shoulder range of motion can be initiated when pain allows next week (2) Closed rib fracture: Status: Acute Problem details: - Questionable age-indeterminate right posterior 3rd rib fracture on admission imaging - Patient continues to deny pain in rib area, requiring low-dose supplemental oxygen. May need oxygen while she is on moderate doses of opioids for pain - continue to follow clinically, adding IS (3) Fall: Status: Acute Problem details: - patient has no fallen twice in the past 2 months, both falls associated with fractures - she believes falls are purely mechanical. Of note, UA +, awaiting culture results prior to treatment given asymptomatic status - SNF stay recommended, appreciate input from therapies and social work (4) COPD (chronic obstructive pulmonary disease): Status: Chronic Problem details: Currently needing oxygen (5) Dementia: Status: Chronic Problem details: Has been relatively appropriate with mild confusion. Appears to be having more sedation from opiate medicines which may be increasing confusion (6) Closed fracture of ramus of right pubis: Status: Acute Problem details: - after fall 08/01/22. Doing well from this standpoint. PT/OT evaluation. (7) Hypertension: Status: Chronic Problem details: Blood pressure relatively low today so amlodipine is discontinued and lisinopril was cut in half. Continue metoprolol 50 mg daily. Will need outpatient follow-up of blood pressure to reassess need for antihypertensive therapy (8) Diabetes 1.5, managed as type 1: Status: Chronic Problem details: Resume home regimen with blood sugar monitoring. May need revision of home medication depending on her blood sugar control (9) Hypoxia: Status: Acute Problem details: May need oxygen while she is on opioids for pain. (10) UTI (urinary tract infection): Status: Acute Problem details: Has UTI with ESBL E coli. Resistant to ampicillin and cefazolin but sensitive to quinolones and broad-spectrum cephalosporins and carbapenems. Uncertain whether she is symptomatic with this. Will treat for 5 days with ciprofloxacin DS: Summary Hospital Course Hospital Course: 82-year-old female admitted to the hospital with fall causing a right proximal humeral fracture. This is mildly displaced, primarily impacted. Orthopedics recommends non operative management with sling. She is having quite a bit of shoulder pain requiring moderate doses of opioids and as a result is moderately sedated. No other obvious illness though her urine culture grew ESBL E coli. Started on ceftriaxone and now treated with Cipro. Uncertain if symptomatic. Status at Discharge Functional status at discharge: wheelchair bound Overall status at discharge: patient is progressing back to baseline Time Spent with Patient Time attestation: Total time spent providing and/or coordinating discharge services: Time spent: Greater than 30 minutes Exam Narrative: Exam Narrative: She is sleepy but arouses to voice. She has appropriate conversation. Respirations are clear to auscultation. Cardiovascular: S1, S2, regular rate and rhythm. Abdomen is soft without tenderness or mass right shoulder is examined. Appears to be relatively atraumatic. No obvious bruising. She very poorly tolerates any motion in her right shoulder. She does tolerate some movement in her right elbow however. Abdomen is soft without tenderness. Const: Vital Signs, click to edit/add: Vital Signs - 24 hr 09/16/22 15:00 09/16/22 15:00 09/16/22 15:00 Temperature 96.8 F L Pulse Rate Pulse Rate [Left P ulse Oximeter] 75 75 Respiratory Rate 24 18 18 Blood Pressure Blood Pressure [Le ft Arm] 136/53 L Pulse Oximetry 94 94 Oxygen Delivery Me thod Nasal Cannula Nasal Cannula Oxygen Flow Rate 2 2 09/16/22 18:30 09/16/22 19:00 09/16/22 23:00 Temperature 97.1 F L Pulse Rate Pulse Rate [Left P ulse Oximeter] 77 77 Respiratory Rate 18 20 Blood Pressure Blood Pressure [Le ft Arm] 150/62 H Pulse Oximetry 93 91 Oxygen Delivery Me thod Nasal Cannula Oxygen Flow Rate 2 09/16/22 23:00 09/16/22 23:00 09/17/22 02:30 Temperature 97.6 F 97.8 F Pulse Rate Pulse Rate [Left P ulse Oximeter] 73 72 Respiratory Rate 20 20 20 Blood Pressure Blood Pressure [Le ft Arm] 163/71 H 128/82 Pulse Oximetry 92 92 93 Oxygen Delivery Me thod Nasal Cannula Nasal Cannula Nasal Cannula Oxygen Flow Rate 2 2 1.5 09/17/22 09:24 09/17/22 09:29 09/17/22 07:00 Temperature 97.8 F 97.8 F 97.5 F L Pulse Rate 83 83 Pulse Rate [Left P ulse Oximeter] 72 Respiratory Rate 20 20 18 Blood Pressure 139/95 H 139/95 H Blood Pressure [Le ft Arm] 105/46 L Pulse Oximetry 100 Oxygen Delivery Me thod Room Air Oxygen Flow Rate 09/17/22 07:00 09/17/22 07:00 Temperature Pulse Rate Pulse Rate [Left P ulse Oximeter] 72 Respiratory Rate 18 Blood Pressure Blood Pressure [Le ft Arm] Pulse Oximetry 99 Oxygen Delivery Me thod Room Air Oxygen Flow Rate Documenting provider has reviewed patient's vital signs: yes Discharge Plan Discharge Disposition: [facility] Date of Admission: 09/15/22 16:47 Attending Provider on Discharge: Mao Dutta Primary Care Provider: Linette Buckner Condition: Stable Discharge Medications: New oxycodone 5 mg Tablet 5 - 10 mg PO Q4H PRN (Reason: moderate pain) Qty: 60 0RF senna 8.6 mg capsule 8.6 mg PO BID Qty: 30 0RF ciprofloxacin HCl [Cipro] 250 mg tablet 250 mg PO BID Qty: 10 0RF Continued metoprolol succinate 50 mg tablet extended release 24 hr 50 mg PO DAILY sertraline 100 mg tablet 100 mg PO DAILY glipizide 5 mg tablet extended release 24hr 5 mg PO DAILY aspirin 81 mg tablet,delayed release (DR/EC) 81 mg PO DAILY famotidine 20 mg tablet 20 mg PO DAILY simvastatin 20 mg tablet 20 mg PO DAILY ferrous sulfate [FeroSul] 325 mg (65 mg iron) tablet 325 mg PO DAILY omeprazole 20 mg capsule,delayed release(DR/EC) 20 mg PO DAILY celecoxib 100 mg capsule 100 mg PO BID insulin glargine [Lantus Solostar U-100 Insulin] 100 unit/mL (3 mL) insulin pen 64 unit subcut Q24H albuterol sulfate 90 mcg/actuation HFA aerosol inhaler 2 puff INHALATION QID PRN (Reason: dyspnea) calcium carbonate [Antacid Ext Str (calcium carb)] 300 mg (750 mg) tablet,chewable 1 tab PO Q6H PRN bismuth subsalicylate [Bismatrol] 262 mg tablet,chewable 2 tab PO Q6H PRN (Reason: diarrhea) cholecalciferol (vitamin D3) 125 mcg (5,000 unit) capsule 125 mcg PO DAILY fluticasone furoate-vilanterol [Breo Ellipta] 200-25 mcg/dose blister with device 1 ea INHALATION DAILY loperamide [Anti-Diarrheal (loperamide)] 2 mg tablet 2 mg PO QID PRN Rx Instructions: administer after each loose stool until symptoms controlled; do not exceed 8 mg per 24 hrs oxycodone 5 mg tablet 5 mg PO Q4H PRN (Reason: moderate pain) polyethylene glycol 3350 [Gavilax] 17 gram powder in packet 17 g PO DAILY Changed lisinopril 40 mg tablet 20 mg PO DAILY Qty: 30 0RF Discontinued amlodipine 5 mg tablet 5 mg PO DAILY tizanidine 2 mg tablet 2 mg PO Q8H PRN (Reason: muscle spasm) Discharge Orders: Discharge Order (Routine); Ordered 09/17/22 Ordered By: Mao Dutta Additional Instructions: Keep right arm in sling except twice a day removed sling to straighten right elbow. As pain improves shoulder range of motion can be initiated. Activity Level: Up with assist Discharge Diet: Regular Follow Up Appointments: [facility] [Outside] (Patient discharged to [facility] [Outside] Linette Buckner MD [Primary Care Provider] - Admit to: SNF Discharge Potential: Fair Length of Stay: 30-90 days Can use facility standing orders?: Yes Code Status: DNR/DNI TEDs: Bilateral Knee Rehab Potential: Fair Therapy: Physical Therapy and Occupational Therapy Therapy Orders: Evaluate and Treat Oxygen: Yes Oxygen Delivery Method: Nasal Cannula Oxygen Flow Rate: 1-2 liters/NC as needed to keep oxygen saturations 90-95% Glucose Checks: 4 times a day before meals and at bedtime Orders are good >30 days: No
--- NOTE | 2022-09-17 14:46 | PC.NURSE ---
Discharge: Took over patient @ 1300, patient IV removed and nurse to nurse report done with previous RN. PRN oxycodone given around 1245, patient states pain is well controlled at this time. Patient discharged @ 1445 via EMS.
== END 2022-09-17 14:45 ==
LOC: ED 16:45 → MEDSURG 16:48
PROVIDERS: Admitting Provider Family Medicine; Emergency Provider Family Medicine; PCP Internal Medicine; Visit Provider Family Medicine
DX: S42.291A Other displaced fracture of upper end of right humerus, initial encounter for closed fracture (principal); S22.31XA Fracture of one rib, right side, initial encounter for closed fracture; J44.9 Chronic obstructive pulmonary disease, unspecified; N39.0 Urinary tract infection, site not specified; S32.591A Other specified fracture of right pubis, initial encounter for closed fracture; R09.02 Hypoxemia; K21.9 Gastro-esophageal reflux disease without esophagitis; M25.511 Pain in right shoulder; W19.XXXA Unspecified fall, initial encounter; I10 Essential (primary) hypertension; F03.A0 Unspecified dementia, mild, without behavioral disturbance, psychotic disturbance, mood disturbance, and anxiety; R03.1 Nonspecific low blood-pressure reading; E13.9 Other specified diabetes mellitus without complications; B96.20 Unspecified Escherichia coli [E. coli] as the cause of diseases classified elsewhere; B96.1 Klebsiella pneumoniae [K. pneumoniae] as the cause of diseases classified elsewhere; Z16.11 Resistance to penicillins; Z16.19 Resistance to other specified beta lactam antibiotics; F11.90 Opioid use, unspecified, uncomplicated; Z79.82 Long term (current) use of aspirin; Z79.4 Long term (current) use of insulin; E78.5 Hyperlipidemia, unspecified
CPT/HCPCS: 36415; 70450; 72125; 73030; 80048; 81001; 82962; 85025; 85610; 85730; 87086; 87186; 87635; 94761; 96365; 96372; 96375; 97162; 97166; 97530; 97535; 99284; 99285; A9270; G0378; J0696; J1170; J2405

== ENCOUNTER 2022-09-17 14:37 | Outpatient (CLI) | payer OTHER, MEDICAID, SELFPAY | END 2022-09-17 14:38 | disposition home or self-care (01) | LOC: AMB 09-18 09:40 | PROVIDERS: PCP Internal Medicine; Visit Provider Family Medicine | DX: S42.301D Unspecified fracture of shaft of humerus, right arm, subsequent encounter for fracture with routine healing (principal) | CPT/HCPCS: A0425; A0428 ==

== ENCOUNTER 2022-10-08 14:27 | Outpatient (REF) | payer MEDICARE, SELFPAY ==
[2022-10-08 14:45] LABS: Appearance Urine Slightly Cloudy (Clear); Bilirubin Urine Negative (Negative); Blood Urine Trace-lysed (Negative); Color Urine Yellow (Yellow); Glucose Urine Negative (Negative); Ketones Urine Negative (Negative); Leukocyte Esterase Urine Negative (Negative); Nitrite Urine Positive (Negative); Protein Urine Negative (Negative); Urobilinogen Urine 0.2 (0.2-1.0); pH Urine 5.5 (5.0-8.5)
[2022-10-08 15:22] LABS: Bacteria Urine Many; RBC Urine 0-2 (0-2); WBC Urine 0-2 (0-5)
== END 2022-10-08 14:28 | disposition home or self-care (01) ==
LOC: NPINS 14:27
PROVIDERS: PCP Internal Medicine; Visit Provider Nurse Practitioner Adult Health
DX: R35.0 Frequency of micturition (principal)
CPT/HCPCS: 81003; 81015; 87086; 87186

== ENCOUNTER 2022-11-05 18:38 | Emergency (ER) | payer MEDICARE, SELFPAY ==
[2022-11-05 19:01] VITALS: BP 192/82; PULSE 89; RESP 18; TEMP 36.5; O2SAT 97
[2022-11-05] MEDS: OLANZapine 5 MG TAB.RAPDIS PO (19:13)
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
--- NOTE | 2022-11-05 19:43 | CRLHL7_ITS ---
For Patients: As a result of the Cures Act, medical imaging exams and procedure reports are released immediately into your electronic medical record. You may view this report before your referring provider. If you have questions, please contact your health care provider. Indication: History of humeral fracture. Technique: Right shoulder, 2 views. Comparison: September 15, 2022. Findings/Impression: Bones: Re- demonstration of comminuted proximal humeral fracture. Some osseous bridging to suggest interval healing since prior study performed September 15, 2022 Joint spaces: Unremarkable. Soft tissues: Unremarkable. Dictated by Geo Lynch MD @ 11/05/2022 9:00:05 PM (Electronically Signed)
--- NOTE | 2022-11-05 20:31 | ED.NURSE ---
Patient moved to room 5. Put in recliner for comfort. X-Ray in the patient.
[2022-11-05 20:36] LABS: Basophils Absolute Auto 0.01 K/uL (0.00-0.30); Basophils Percent Auto 0.1 % (0.0-3.0); Eosinophils Absolute Auto 0.14 K/uL (0.00-0.50); Eosinophils Percent Auto 1.6 % (0.0-7.0); Hematocrit 39.2 % (33.0-51.0); Hemoglobin* 12.5 gm/dL (12.0-16.0); Immature Granulocytes Abs Auto 0.01 K/uL (0.00-0.30); Immature Granulocytes Pct Auto 0.1 %; Lymphocytes Absolute Auto 1.88 K/uL (0.90-2.90); Lymphocytes Percent Auto 21.4 % (20-44); Mean Corpuscular HGB Conc 32 gm/dL (32-36); Mean Corpuscular Hemoglobin 29 pg (26-34); Mean Corpuscular Volume 92 fL (80-100); Monocytes Percent Auto 7.4 % (0.0-11.0); Neutrophils Absolute Auto 6.08 K/uL (1.7-7.0); Neutrophils Percent Auto 69.4 % (42.0-72.0); Platelet Count* 270 K/uL (140-440); RDW Coefficient of Variation % 13.6 % (11.5-15.5); Red Blood Count 4.26 m/uL (4.00-5.20); White Blood Count* 8.77 K/uL (4.50-11.00)
[2022-11-05 20:37] LABS: Slide Review Reflex No
[2022-11-05 20:57] LABS: Troponin, Point-of-Care* 0.01 ng/ml (0.01-0.04)
[2022-11-05 21:09] LABS: Albumin* 4.4 g/dL (3.3-5.0); Chloride* 101 mmol/L (96-114)
[2022-11-05 21:10] VITALS: BP 175/89; PULSE 93; RESP 18; O2SAT 94
[2022-11-05 21:10] LABS: Potassium* 3.9 mmol/L (3.6-5.1); Sodium* 137 mmol/L (135-149)
[2022-11-05 21:12] LABS: Alanine Aminotransferase* 18 U/L (4-35); Alkaline Phosphatase* 185 U/L (40-150); Aspartate Amino Transferase* 19 U/L (12-35); Bilirubin Total* 0.6 mg/dL (0.1-1.5); Blood Urea Nitrogen* 22 mg/dL (7-30); Carbon Dioxide* 26 mmol/L (20-32); Estimated Glomerular Filt Rate 56 ml/min; Glucose* 272 mg/dL (60-115); Total Protein* 7.3 g/dL (6.0-8.3)
[2022-11-05 21:13] LABS: Calcium* 9.9 mg/dL (8.4-10.6)
--- NOTE | 2022-11-05 21:27 | ED.NURSE ---
Patient assisted to bedside commode with 2A, gb and walker. Tolerated fairly well. Urine sample obtained. Patient assisted back to chair and provided with warm blankets. Patient's daughter Sujata jason.
[2022-11-05 21:29] LABS: Appearance Urine Clear (Clear); Bilirubin Urine Negative (Negative); Blood Urine Trace-intact (Negative); Color Urine Yellow (Yellow); Glucose Urine Negative (Negative); Ketones Urine Negative (Negative); Leukocyte Esterase Urine Negative (Negative); Nitrite Urine Negative (Negative); Protein Urine Negative (Negative); Urobilinogen Urine 0.2 (0.2-1.0)
[2022-11-05 21:41] LABS: Bacteria Urine Few; RBC Urine 0-2 (0-2); Squamous Epithelial Cell Urine Few (None-Few); WBC Urine 0-2 (0-5)
[2022-11-05] MEDS: CEFAZOLIN 1 GM in 0.9 % SODIUM CHLORIDE Mini-bag 100 ML IVPB (21:48)
[2022-11-05] MEDS: cefTRIAXone 1 GM in 0.9 % SODIUM CHLORIDE Mini-bag 100 ML IVPB (22:20)
[2022-11-05 22:42] LABS: Troponin, Point-of-Care* 0.02 ng/ml (0.01-0.04)
--- NOTE | 2022-11-05 22:50 | ED.NURSE ---
Patient resting in the chair. Calm, cooperative and pleasant.
[2022-11-05] MEDS: LORazepam 1 MG TABLET PO (23:13)
[2022-11-05 23:14] VITALS: BP 167/75; PULSE 71; RESP 18; O2SAT 96
[2022-11-05] MEDS: DIVALPROEX DELAYED RELEASE 250 MG TABLET PO (23:14)
--- NOTE | 2022-11-05 23:23 | ED.NURSE ---
ETA for EMS is 10-15 minutes
--- NOTE | 2022-11-05 23:46 | ED.NURSE ---
[facility] contacted regarding patient's return.
--- NOTE | 2022-11-06 00:03 | ED.NURSE ---
Patient's cell phone found in the sheets after discharge. Daughter Sujata contacted and she will pick it up when she is able. 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
== END 2022-11-05 23:00 ==
PROVIDERS: Emergency Provider Family Medicine; PCP Internal Medicine
DX: N39.0 Urinary tract infection, site not specified (principal); F03.90 Unspecified dementia, unspecified severity, without behavioral disturbance, psychotic disturbance, mood disturbance, and anxiety; R45.6 Violent behavior
CPT/HCPCS: 36415; 73060; 80053; 81001; 84484; 85025; 87040; 87070; 87086; 87186; 93005; 96365; 96366; 99284; 99285; A0425; A0428; A0429; A9270; J0690; J0696

== ENCOUNTER 2022-11-19 19:55 | Observation (INO) | payer MEDICARE, SELFPAY ==
--- NOTE | 2022-11-19 19:59 | ED_ITS ---
HPI - General Adult General Time Seen by Provider: 20:00 <Varun Franklin MD - Last Filed: 11/19/22 22:52> Date Seen: 11/19/22 <Varun Franklin MD - Last Filed: 11/19/22 22:52> Chief complaint: Psychiatric Problem/Disorder <Varun Franklin MD - Last Filed: 11/19/22 22:52> Stated complaint: Dementia <Varun Franklin MD - Last Filed: 11/19/22 22:52> Time Seen by Provider: 11/19/22 19:59 <Varun Franklin MD - Last Filed: 11/19/22 22:52> Source: patient (Limited secondary to dementia), EMS, RN notes reviewed and old records reviewed <Varun Franklin MD - Last Filed: 11/19/22 22:52> Mode of arrival: ambulatory <Varun Franklin MD - Last Filed: 11/19/22 22:52> Limitations: no limitations <Varun Franklin MD - Last Filed: 11/19/22 22:52> History of Present Illness HPI narrative: 82-year-old female brought in from [facility] for behavioral disturbance. She has a history of dementia and verbal outbursts, in the past as also dictate staff. She was seen a couple weeks ago with similar presentation to abelino and at that time was found have urinary tract infection, responded quite well to Zyprexa at that visit but was not started on this medication. Review of records shows that patient was started on Seroquel couple of days ago, although it sounds like she spent all of her medications today. Patient herself has no specific complaints. Denies head pain, neck pain, chest pain, breathing difficulty, abdominal pain, leg pain. She has chronic back pain. <Varun Franklin MD - Last Filed: 11/19/22 22:52> Related Data Home medications: Home Medications Medication Instructions Recorded Confirmed albuterol sulfate 90 mcg/actuation 2 puff inhalation QID PRN dyspnea 09/15/22 09/15/22 aerosol inhaler aspirin 81 mg tablet,delayed 81 mg PO DAILY 09/15/22 09/15/22 release bismuth subsalicylate 262 mg 2 tab PO Q6H PRN diarrhea 09/15/22 09/15/22 chewable tablet (Bismatrol) calcium carbonate 300 mg (750 mg) 1 tab PO Q6H PRN 09/15/22 09/15/22 chewable tablet (Antacid Extra Strength (calcium carb)) celecoxib 100 mg capsule 100 mg PO BID pain 09/15/22 09/15/22 cholecalciferol (vitamin D3) 125 125 mcg PO DAILY 09/15/22 09/15/22 mcg (5,000 unit) capsule famotidine 20 mg tablet 20 mg PO DAILY 09/15/22 09/15/22 ferrous sulfate 325 mg (65 mg 325 mg PO DAILY 09/15/22 09/15/22 iron) tablet (FeroSul) fluticasone furoate 200 1 ea inhalation DAILY 09/15/22 09/15/22 mcg-vilanterol 25 mcg/dose inhalation powder (Breo Ellipta) glipizide 5 mg tablet, extended 5 mg PO DAILY 09/15/22 09/15/22 release 24 hr insulin glargine 100 unit/mL (3 64 unit subcut Q24H 09/15/22 09/15/22 mL) subcutaneous pen (Lantus Solostar U-100 Insulin) loperamide 2 mg tablet 2 mg PO QID PRN 09/15/22 09/15/22 (Anti-Diarrheal (loperamide)) metoprolol succinate 50 mg 50 mg PO DAILY blood pressure 09/15/22 11/20/22 tablet,extended release 24 hr omeprazole 20 mg capsule,delayed 20 mg PO DAILY 09/15/22 09/15/22 release oxycodone 5 mg tablet 5 mg PO Q2H PRN moderate pain 09/15/22 11/20/22 polyethylene glycol 3350 17 gram 17 g PO DAILY 09/15/22 11/20/22 oral powder packet (Gavilax) sertraline 100 mg tablet 100 mg PO DAILY depressive disorder 09/15/22 11/20/22 simvastatin 20 mg tablet 20 mg PO DAILY 09/15/22 09/15/22 Previous Rx's Medication Instructions Recorded ciprofloxacin HCl 250 mg tablet 250 mg PO BID #10 tabs 09/17/22 (Cipro) lisinopril 40 mg tablet 20 mg (1/2 x 40 mg) PO DAILY blood 09/17/22 pressure #30 tabs sennosides 8.6 mg capsule (senna) 8.6 mg PO BID #30 caps 09/17/22 cefixime 400 mg capsule (Suprax) 400 mg PO DAILY 7 days #7 caps 11/05/22 <Varun Franklin MD - Last Filed: 11/19/22 22:52> Allergies/adverse reactions: Allergies Allergy/AdvReac Type Severity Reaction Status Date / Time bupropion [From Wellbutrin] Allergy Verified 09/15/22 14:46 morphine Allergy Verified 09/15/22 14:46 Sulfa (Sulfonamide Allergy Verified 09/15/22 14:46 Antibiotics) <Varun Franklin MD - Last Filed: 11/19/22 22:52> Review of Systems Status of ROS: Reports: 10 or more systems reviewed and unremarkable except as noted in History and below <Varun Franklin MD - Last Filed: 11/19/22 22:52> [facility] Medical History: Medical History (Updated 11/19/22 @ 21:44 by Varun Franklin MD) POLST (Physician Orders for Life-Sustaining Treatment) ?Z78.9 - Other specified health status (ICD-10) Fall (09/15/22) ?W19.XXXA - Unspecified fall, initial encounter (ICD-10) UTI (urinary tract infection) (~08/01/22) ?N39.0 - Urinary tract infection, site not specified (ICD-10) Left rib fracture (~08/01/22) ?S22.32XA - Fracture of one rib, left side, initial encounter for closed fracture (ICD-10) Fibula fracture (~08/01/22) ?S82.409A - Unspecified fracture of shaft of unspecified fibula, initial encounter for closed fracture (ICD-10) Dementia ?F03.90 - Unspecified dementia, unspecified severity, without behavioral disturbance, psychotic disturbance, mood disturbance, and anxiety (ICD-10) COPD (chronic obstructive pulmonary disease) ?J44.9 - Chronic obstructive pulmonary disease, unspecified (ICD-10) Fall (~06/25/22) ?W19.XXXA - Unspecified fall, initial encounter (ICD-10) Closed fracture of ramus of right pubis (~08/01/22) ?S32.591A - Other specified fracture of right pubis, initial encounter for closed fracture (ICD-10) Iron deficiency anemia ?D50.9 - Iron deficiency anemia, unspecified (ICD-10) GERD (gastroesophageal reflux disease) ?K21.9 - Gastro-esophageal reflux disease without esophagitis (ICD-10) Vitamin D deficiency ?E55.9 - Vitamin D deficiency, unspecified (ICD-10) Hypomagnesemia ?E83.42 - Hypomagnesemia (ICD-10) Urinary incontinence ?R32 - Unspecified urinary incontinence (ICD-10) Leg weakness ?R29.898 - Other symptoms and signs involving the musculoskeletal system (ICD-10) Cerebral atrophy ?G31.9 - Degenerative disease of nervous system, unspecified (ICD-10) Spinal stenosis ?M48.00 - Spinal stenosis, site unspecified (ICD-10) Gout ?M10.9 - Gout, unspecified (ICD-10) Splenic artery aneurysm ?I72.8 - Aneurysm of other specified arteries (ICD-10) Hyperlipidemia ?E78.5 - Hyperlipidemia, unspecified (ICD-10) Depression ?F32.A - Depression, unspecified (ICD-10) Hypertension ?I10 - Essential (primary) hypertension (ICD-10) Diabetes 1.5, 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 She has help with medications and cleaning. Denies tob, EtOH, recreational drugs. POLST states DNR/DNI. Highest level of school completed/degree received: high school graduate Smoking Status: Never smoker Do you use any of these nicotine containing products: None Second hand tobacco smoke exposure: No How often do you have a drink containing alcohol: never How often do you have six or more drinks on one occasion: Never AUDIT-C Alcohol total score: 0 Non-prescribed substance use: denies use <Varun Franklin MD - Last Filed: 11/19/22 22:52> Exam Narrative: Exam Narrative: General: Well-developed and well-nourished, anxious appearing and yelling ?help me? but does positive answer questions Head: Atraumatic and normocephalic Eyes: Pupils are equal reactive, extraocular motions intact, conjunctiva clear ENT: External nose and ears are normal, posterior pharynx without erythema or exudate Neck: No midline cervical tenderness, full spontaneous range of motion the neck, trachea midline, no adenopathy Heart: Regular rate and rhythm no murmurs or thrills Lungs: Clear to auscultation bilaterally without wheezes or crackles Abdomen: Soft, nontender, nondistended with active bowel sounds Musculoskeletal: No tenderness, deformity, moderate pitting edema of the lower extremities bilaterally although the legs are wrapped on arrival, some scaling of the skin bilaterally but no erythema or warmth to suggest acute infection Neurologic: Awake, alert, no gross focal neurologic deficits, cranial nerves intact as tested Psych: Mood and affect are appropriate Skin: No rashes <Varun Franklin MD - Last Filed: 11/19/22 22:52> Const: Vital Signs, click to edit/add: Vital Signs - 24 hr 11/19/22 20:01 11/19/22 23:28 11/20/22 03:34 Temperature 98.9 F Pulse Rate [Pulse Oximeter] 101 H 67 56 L Respiratory Rate 16 16 14 Blood Pressure [Le ft Upper Arm] 152/94 H 137/61 Pulse Oximetry 95 92 94 Oxygen Delivery Me thod Room Air Room Air Room Air 11/20/22 04:37 Temperature Pulse Rate [Pulse Oximeter] 59 L Respiratory Rate 16 Blood Pressure [Le ft Upper Arm] 140/55 H Pulse Oximetry 95 Oxygen Delivery Me thod Room Air <Varun Franklin MD - Last Filed: 11/19/22 22:52> Vital Signs, click to edit/add: Vital Signs - 24 hr 11/19/22 20:01 11/19/22 23:28 11/20/22 03:34 Temperature 98.9 F Pulse Rate [Pulse Oximeter] 101 H 67 56 L Respiratory Rate 16 16 14 Blood Pressure [Le ft Upper Arm] 152/94 H 137/61 Pulse Oximetry 95 92 94 Oxygen Delivery Me thod Room Air Room Air Room Air 11/20/22 04:37 Temperature Pulse Rate [Pulse Oximeter] 59 L Respiratory Rate 16 Blood Pressure [Le ft Upper Arm] 140/55 H Pulse Oximetry 95 Oxygen Delivery Me thod Room Air <Clint Jaimes MD - Last Filed: 11/20/22 13:39> Course Course Hospital Course: Patient seen examined, prior records reviewed as well as [facility] records. Patient with history of dementia and outburst who has increasing behavioral concerns tonight, refusing to take medications. It sounds like they have been making some medication adjustments including decreasing her oxycodone and starting fentanyl patches. Appears patient was started on Seroquel a couple days ago both scheduled and p.r.n.. On exam here, patient is initially yelling but then is little bit more cooperative during the course of my exam. Has r esponded well to Zyprexa in the past. Basic medical screening exam will be done with labs and urinalysis is patient has had worsening behavioral outbursts in the setting of urinary tract infection in the past. <Varun Franklin MD - Last Filed: 11/19/22 22:52> Reevaluation(s) Reevaluation #1: Labs independently interpreted by me with normal CBC, normal basic panel, urinalysis not consistent with infection. Patient is little calmer after Zyprexa 10 mg total. Plan to observe the patient in the hospital overnight and evaluate in the morning to assure that she is in an appropriate care setting and make some medication adjustments. <Varun Franklin MD - Last Filed: 11/19/22 22:52> Time: 21:42 <Varun Franklin MD - Last Filed: 11/19/22 22:52> Reevaluation #2: Updated daughter with findings and plan. Patient will be held in the emergency department overnight with plans for consult with social Work, possible constipation with psychiatry and consider geriatric psych placement. <Varun Franklin MD - Last Filed: 11/19/22 22:52> Time: 22:30 <Varun Franklin MD - Last Filed: 11/19/22 22:52> Reevaluation #3: Came on at 8:00 a.m., reviewed notes of patient. She had just received Haldol IM, and is calm and sleeping. Today's focus will be on getting criminal justice social worker see here and seeing what ability we have to get geriatric psych placement. For medication management. Her laboratory work is reviewed, she does not have a UTI, and the other works seems to be all within normal limits. This seems to be a behavioral issue associated with her medical diagnosis of dementia. <Clint Jaimes MD - Last Filed: 11/20/22 13:39> Time: : <Clint Jaimes MD - Last Filed: 11/20/22 13:39> Additional Reevaluation(s): 12:46 p.m.. I had pharmacy review her medications, in which she has been on over the last week. We will try to titrate her medications and get her restarted on which she was on, we have found that music seems to soothe her, she has gone from screaming at the top of her lungs to markedly improved. I am not sure how long this will last, but we will try this. We will try the Zyprexa IM, along with oral Zyprexa, for firm signs recommendations. For unable to get her transferred. Then we will have to admit her to the floor. 1:30 p.m., no history of acute fracture noted on the hip and the pelvic x-ray. My nurses when they were cleaning her up were worried about this. atient: MAHNAZ CARBALLO Facility:?[facility] Patient ID:?[id number] Site Patient ID:?[id number]. Site :?[id number] Study:?XRay Hip Right -11/20/2022 12:31:08 PM Ordering Physician:Jethro Kimble Final Report: Indication: Pain. Technique: Pelvis/right hip, 3 views. Comparison: August 08, 2018. Findings/Impression: Bones: Demineralization. Prior right femoral neck surgical screw fixation. Ch ronic deformity of the inferior pubic ramus. Osteitis pubis. Alignment is normal. No definite displaced fractures or bone lesions on this limited study secondary to demineralization and body habitus. Joint spaces: Unremarkable. Soft tissues: Unremarkable. Dictated by Geo Lynch MD @ 11/20/2022 12:54:20 PM (Electronic Signature) Discussed with will admit to the floor pending transfer to Dementia unit. <Clint Jaimes MD - Last Filed: 11/20/22 13:39> Vital Signs Vital signs: Initial Vital Signs Temperature 98.9 F 11/19/22 20:01 Temperature Source Temporal Artery Scan 11/19/22 20:01 Pulse Rate 101 H 11/19/22 20:01 Respiratory Rate 16 11/19/22 20:01 Blood Pressure 152/94 H 11/19/22 20:01 Blood Pressure Mean 113 H 11/19/22 20:01 Pulse Oximetry 95 11/19/22 20:01 Oxygen Delivery Method Room Air 11/19/22 20:01 Vital Signs Temperature 98.9 F 11/19/22 20:01 Pulse Rate 101 H 11/19/22 20:01 Respiratory Rate 16 11/19/22 20:01 Blood Pressure 152/94 H 11/19/22 20:01 Pulse Oximetry 95 11/19/22 20:01 Oxygen Delivery Method Room Air 11/19/22 20:01 Temperature 98.9 F 11/19/22 20:01 Pulse Rate 59 L 11/20/22 04:37 Respiratory Rate 16 11/20/22 04:37 Blood Pressure 140/55 H 11/20/22 04:37 Pulse Oximetry 95 11/20/22 04:37 Oxygen Delivery Method Room Air 11/20/22 04:37 <Varun Franklin MD - Last Filed: 11/19/22 22:52> Initial Vital Signs Temperature 98.9 F 11/19/22 20:01 Temperature Source Temporal Artery Scan 11/19/22 20:01 Pulse Rate 101 H 11/19/22 20:01 Respiratory Rate 16 11/19/22 20:01 Blood Pressure 152/94 H 11/19/22 20:01 Blood Pressure Mean 113 H 11/19/22 20:01 Pulse Oximetry 95 11/19/22 20:01 Oxygen Delivery Method Room Air 11/19/22 20:01 Vital Signs Temperature 98.9 F 11/19/22 20:01 Pulse Rate 101 H 11/19/22 20:01 Respiratory Rate 16 11/19/22 20:01 Blood Pressure 152/94 H 11/19/22 20:01 Pulse Oximetry 95 11/19/22 20:01 Oxygen Delivery Method Room Air 11/19/22 20:01 Temperature 98.9 F 11/19/22 20:01 Pulse Rate 59 L 11/20/22 04:37 Respiratory Rate 16 11/20/22 04:37 Blood Pressure 140/55 H 11/20/22 04:37 Pulse Oximetry 95 11/20/22 04:37 Oxygen Delivery Method Room Air 11/20/22 04:37 <Clint Jaimes MD - Last Filed: 11/20/22 13:39> Medical Decision Making Medical Records Medical records reviewed: Yes I reviewed the patient's medical records <Varun Franklin MD - Last Filed: 11/19/22 22:52> Lab Data Lab results reviewed: Yes I reviewed the patient's lab results <Varun Franklin MD - Last Filed: 11/19/22 22:52> Labs: Lab Results 11/19/22 11/19/22 Range/Units 20:26 21:01 WBC 9.20 (4.50-11.00) K/uL RBC 4.41 (4.00-5.20) m/uL Hgb 12.8 (12.0-16.0) gm/dL Hct 41.4 (33.0-51.0) % MCV 94 (80-100) fL MCH 29 (26-34) pg MCHC 31 L (32-36) gm/dL RDW Coeff of Amy 13.4 (11.5-15.5) % Plt Count 222 (140-440) K/uL Neut % (Auto) 64.8 (42.0-72.0) % Lymph % (Auto) 22.2 (20-44) % [place] % (Auto) 9.9 (0.0-11.0) % Eos % (Auto) 2.8 (0.0-7.0) % Baso % (Auto) 0.2 (0.0-3.0) % Neut # (Auto) 5.96 (1.7-7.0) K/uL Lymph # (Auto) 2.04 (0.90-2.90) K/uL [place] # (Auto) 0.90 (0.00-0.90) K/UL Eos # (Auto) 0.26 (0.00-0.50) K/uL Baso # (Auto) 0.02 (0.00-0.30) K/uL Sodium 139 (135-149) mmol/L Potassium 4.2 (3.6-5.1) mmol/L Chloride 99 (96-114) mmol/L Carbon Dioxide 31 (20-32) mmol/L BUN 30 (7-30) mg/dL Creatinine 1.4 (0.5-1.5) mg/dL Estimated GFR 37 ml/min Glucose 163 H (60-115) mg/dL Calcium 10.3 (8.4-10.6) mg/dL Urine Color Yellow (Yellow) Urine Appearance Clear (Clear) Urine pH 5.0 (5.0-8.5) Ur Specific [place] 1.025 (1.000-1.030) Urine Protein Negative (Negative) Urine Glucose (UA) Negative (Negative) Urine Ketones Trace A (Negative) Urine Blood Negative (Negative) Urine Nitrite Negative (Negative) Urine Bilirubin 1+ A (Negative) Urine Urobilinogen 0.2 (0.2-1.0) Ur Leukocyte Esterase Negative (Negative) Urine RBC 0-2 (0-2) Urine WBC 0-2 (0-5) Ur Squamous Epith Cells Few (None-Few) Urine Bacteria Few A (None) <Varun Franklin MD - Last Filed: 11/19/22 22:52> Lab Results 11/19/22 11/19/22 Range/Units 20:26 21:01 WBC 9.20 (4.50-11.00) K/uL RBC 4.41 (4.00-5.20) m/uL Hgb 12.8 (12.0-16.0) gm/dL Hct 41.4 (33.0-51.0) % MCV 94 (80-100) fL MCH 29 (26-34) pg MCHC 31 L (32-36) gm/dL RDW Coeff of Amy 13.4 (11.5-15.5) % Plt Count 222 (140-440) K/uL Neut % (Auto) 64.8 (42.0-72.0) % Lymph % (Auto) 22.2 (20-44) % [place] % (Auto) 9.9 (0.0-11.0) % Eos % (Auto) 2.8 (0.0-7.0) % Baso % (Auto) 0.2 (0.0-3.0) % Neut # (Auto) 5.96 (1.7-7.0) K/uL Lymph # (Auto) 2.04 (0.90-2.90) K/uL [place] # (Auto) 0.90 (0.00-0.90) K/UL Eos # (Auto) 0.26 (0.00-0.50) K/uL Baso # (Auto) 0.02 (0.00-0.30) K/uL Sodium 139 (135-149) mmol/L Potassium 4.2 (3.6-5.1) mmol/L Chloride 99 (96-114) mmol/L Carbon Dioxide 31 (20-32) mmol/L BUN 30 (7-30) mg/dL Creatinine 1.4 (0.5-1.5) mg/dL Estimated GFR 37 ml/min Glucose 163 H (60-115) mg/dL Calcium 10.3 (8.4-10.6) mg/dL Urine Color Yellow (Yellow) Urine Appearance Clear (Clear) Urine pH 5.0 (5.0-8.5) Ur Specific [place] 1.025 (1.000-1.030) Urine Protein Negative (Negative) Urine Glucose (UA) Negative (Negative) Urine Ketones Trace A (Negative) Urine Blood Negative (Negative) Urine Nitrite Negative (Negative) Urine Bilirubin 1+ A (Negative) Urine Urobilinogen 0.2 (0.2-1.0) Ur Leukocyte Esterase Negative (Negative) Urine RBC 0-2 (0-2) Urine WBC 0-2 (0-5) Ur Squamous Epith Cells Few (None-Few) Urine Bacteria Few A (None) <Clint Jaimes MD - Last Filed: 11/20/22 13:39> Discharge Plan Discharge Clinical Impression: Outbursts of explosive behavior, Dementia, Chronic pain <Varun Franklin MD - Last Filed: 11/19/22 22:52> Patient Disposition: Admitted As Inpatient <Varun Franklin MD - Last Filed: 11/19/22 22:52> Condition: Stable <Varun Franklin MD - Last Filed: 11/19/22 22:52> Activity Level: Other <Varun Franklin MD - Last Filed: 11/19/22 22:52> Other <Clint Jaimes MD - Last Filed: 11/20/22 13:39>
[2022-11-19 20:01] VITALS: BP 152/94; PULSE 101; RESP 16; TEMP 37.2; O2SAT 95
--- NOTE | 2022-11-19 20:20 | ED.NURSE ---
Patient provided with water, sandwich and a warm blanket. Patient calm and cooperative. Lab in to draw patient.
[2022-11-19] MEDS: OLANZapine 5 MG TAB.RAPDIS PO ×2 (20:31→21:03)
[2022-11-19 20:32] LABS: Basophils Absolute Auto 0.02 K/uL (0.00-0.30); Basophils Percent Auto 0.2 % (0.0-3.0); Eosinophils Absolute Auto 0.26 K/uL (0.00-0.50); Eosinophils Percent Auto 2.8 % (0.0-7.0); Hematocrit 41.4 % (33.0-51.0); Hemoglobin* 12.8 gm/dL (12.0-16.0); Immature Granulocytes Abs Auto 0.01 K/uL (0.00-0.30); Immature Granulocytes Pct Auto 0.1 %; Lymphocytes Absolute Auto 2.04 K/uL (0.90-2.90); Lymphocytes Percent Auto 22.2 % (20-44); Mean Corpuscular HGB Conc 31 gm/dL (32-36); Mean Corpuscular Hemoglobin 29 pg (26-34); Mean Corpuscular Volume 94 fL (80-100); Monocytes Percent Auto 9.9 % (0.0-11.0); Neutrophils Absolute Auto 5.96 K/uL (1.7-7.0); Neutrophils Percent Auto 64.8 % (42.0-72.0); Platelet Count* 222 K/uL (140-440); RDW Coefficient of Variation % 13.4 % (11.5-15.5); Red Blood Count 4.41 m/uL (4.00-5.20)
[2022-11-19 20:44] LABS: Chloride* 99 mmol/L (96-114); Potassium* 4.2 mmol/L (3.6-5.1); Sodium* 139 mmol/L (135-149)
[2022-11-19 20:47] LABS: Blood Urea Nitrogen* 30 mg/dL (7-30); Carbon Dioxide* 31 mmol/L (20-32); Creatinine* 1.4 mg/dL (0.5-1.5); Estimated Glomerular Filt Rate 37 ml/min
[2022-11-19 20:48] LABS: Calcium* 10.3 mg/dL (8.4-10.6); Glucose* 163 mg/dL (60-115)
[2022-11-19 20:50] LABS: Slide Review Reflex No
[2022-11-19 21:09] LABS: Appearance Urine Clear (Clear); Bilirubin Urine 1+ (Negative); Blood Urine Negative (Negative); Color Urine Yellow (Yellow); Glucose Urine Negative (Negative); Ketones Urine Trace (Negative); Leukocyte Esterase Urine Negative (Negative); Nitrite Urine Negative (Negative); Protein Urine Negative (Negative); Specific Gravity Urine 1.025 (1.000-1.030); Urobilinogen Urine 0.2 (0.2-1.0)
--- NOTE | 2022-11-19 21:14 | ED.NURSE ---
Straight cath completed to obtain urine sample. Patient tolerated well. Continues to yell out. Is reporting pain to bilateral knees. Bilateral lower legs placed on pillows to elevate. Fentanyl patch in place to right upper chest dated 11/17.
[2022-11-19 21:34] LABS: Bacteria Urine Few; RBC Urine 0-2 (0-2); Squamous Epithelial Cell Urine Few (None-Few); WBC Urine 0-2 (0-5)
--- NOTE | 2022-11-19 21:34 | ED.NURSE ---
Patient assisted into reclining chair. She tolerated well. Daughter remains at bedside.
--- NOTE | 2022-11-19 22:20 | ED.NURSE ---
Patient declined oxycodone when offered. MD in updating daughter on plan of care. Patient has been resting in the recliner. Will occasionally yell out help. Will continue to monitor.
[2022-11-19] MEDS: OXYCODONE 5 MG TABLET PO (22:29)
--- NOTE | 2022-11-19 22:39 | ED.NURSE ---
Daughter, Sujata, went home for the night. She is available by cell if needed. Patient agreeable to take oxycodone for leg/knee pain. Provided with additional warm blanket.
--- NOTE | 2022-11-19 22:50 | ED.NURSE ---
[facility] updated with plan of care.
[2022-11-19 23:28] VITALS: BP 137/61; PULSE 67; RESP 16; O2SAT 92
--- NOTE | 2022-11-19 23:54 | ED.NURSE ---
Patient yelling out Help me! The train! Help me! Patient provided with reassurance. Determined patient would like to go to the restroom. Assisted onto the commode. Patient voided. Brief changed. Patient assisted back to chair. Provided with warm blanket. Lights dimmed. Video monitoring remains in place.
[2022-11-20] MEDS: OLANZapine 5 MG/ML inj IM ×2 (01:59→22:46)
--- NOTE | 2022-11-20 02:00 | ED.NURSE ---
Late entry: patient awakened and began yelling out. Assisted to bedside commode, where patient voided. Continued to yell out. Offered food, fluids and warm blankets. Patient continued to yell out. Throwing blankets off. updated. IM Zyprexa administered per orders.
[2022-11-20] MEDS: LORazepam 2 MG/ML inj 1 MG IM (02:58)
--- NOTE | 2022-11-20 03:06 | ED.NURSE ---
Patient continues to be agitated and yell out. Additional medications administered per orders.
--- NOTE | 2022-11-20 03:32 | ED.NURSE ---
Patient sleeping. Continuos pulse ox and video monitoring in place.
[2022-11-20 03:34] VITALS: PULSE 56; RESP 14; O2SAT 94
[2022-11-20 04:37] VITALS: BP 140/55; PULSE 59; RESP 16; O2SAT 95
--- NOTE | 2022-11-20 07:06 | ED.NURSE ---
Pt states that God is in the bed with her and also Alejandro. Pt drank water and continues to scream out after multiple attempts by this nurse to soothe patient.
--- NOTE | 2022-11-20 07:18 | ED_ITS ---
HPI - General Adult General Chief complaint: Psychiatric Problem/Disorder Stated complaint: Dementia Time Seen by Provider: 11/19/22 19:59 Source: patient (Limited secondary to dementia), EMS, RN notes reviewed and old records reviewed Mode of arrival: ambulatory Limitations: no limitations Related Data Home Medications Medication Instructions Recorded Confirmed bismuth subsalicylate 262 mg 2 tab PO Q6H PRN diarrhea 09/15/22 11/20/22 chewable tablet (Bismatrol) insulin glargine 100 unit/mL (3 25 unit subcut Q24H 09/15/22 11/20/22 mL) subcutaneous pen (Lantus Solostar U-100 Insulin) loperamide 2 mg tablet 2 mg PO QID PRN 09/15/22 11/20/22 (Anti-Diarrheal (loperamide)) metoprolol succinate 50 mg 50 mg PO DAILY blood pressure 09/15/22 11/20/22 tablet,extended release 24 hr oxycodone 5 mg tablet 5 mg PO Q2H PRN moderate pain 09/15/22 11/20/22 polyethylene glycol 3350 17 gram 17 g PO DAILY 09/15/22 11/20/22 oral powder packet (Gavilax) sertraline 100 mg tablet 100 mg PO DAILY depressive disorder 09/15/22 11/20/22 fentanyl 25 mcg/hr transdermal 1 patch topical Q3D 11/20/22 11/20/22 patch furosemide 40 mg tablet 40 mg PO BID 11/20/22 11/20/22 lidocaine 4 % topical patch 1 patch topical Q24H 11/20/22 11/20/22 (Lidocaine Pain Relief) lisinopril 20 mg tablet 20 mg PO DAILY 11/20/22 11/20/22 lorazepam 0.5 mg tablet 0.5 mg PO TID 11/20/22 11/20/22 quetiapine 25 mg tablet 25 mg PO BID 11/20/22 11/20/22 quetiapine 50 mg tablet 50 mg PO QPM 11/20/22 11/20/22 sennosides 8.6 mg capsule (senna) 17.2 mg PO BID 11/20/22 11/20/22 trazodone 100 mg tablet 100 mg PO QPM 11/20/22 11/20/22 Allergies Allergy/AdvReac Type Severity Reaction Status Date / Time bupropion [From Wellbutrin] Allergy Verified 09/15/22 14:46 morphine Allergy Verified 09/15/22 14:46 Sulfa (Sulfonamide Allergy Verified 09/15/22 14:46 Antibiotics) [facility] Medical History (Updated 11/20/22 @ 15:49 by Mao Dutta MD) COPD (chronic obstructive pulmonary disease) ?J44.9 - Chronic obstructive pulmonary disease, unspecified (ICD-10) Fracture of femoral neck, right, closed ?S72.001A - Fracture of unspecified part of neck of right femur, initial encounter for closed fracture (ICD-10) POLST (Physician Orders for Life-Sustaining Treatment) ?Z78.9 - Other specified health status (ICD-10) Fall (09/15/22) ?W19.XXXA - Unspecified fall, initial encounter (ICD-10) UTI (urinary tract infection) (~08/01/22) ?N39.0 - Urinary tract infection, site not specified (ICD-10) Left rib fracture (~08/01/22) ?S22.32XA - Fracture of one rib, left side, initial encounter for closed fracture (ICD-10) Fibula fracture (~08/01/22) ?S82.409A - Unspecified fracture of shaft of unspecified fibula, initial encounter for closed fracture (ICD-10) Dementia ?F03.90 - Unspecified dementia, unspecified severity, without behavioral disturbance, psychotic disturbance, mood disturbance, and anxiety (ICD-10) Fall (~06/25/22) ?W19.XXXA - Unspecified fall, initial encounter (ICD-10) Closed fracture of ramus of right pubis (~08/01/22) ?S32.591A - Other specified fracture of right pubis, initial encounter for closed fracture (ICD-10) Iron deficiency anemia ?D50.9 - Iron deficiency anemia, unspecified (ICD-10) GERD (gastroesophageal reflux disease) ?K21.9 - Gastro-esophageal reflux disease without esophagitis (ICD-10) Vitamin D deficiency ?E55.9 - Vitamin D deficiency, unspecified (ICD-10) Hypomagnesemia ?E83.42 - Hypomagnesemia (ICD-10) Urinary incontinence ?R32 - Unspecified urinary incontinence (ICD-10) Leg weakness ?R29.898 - Other symptoms and signs involving the musculoskeletal system (ICD-10) Cerebral atrophy ?G31.9 - Degenerative disease of nervous system, unspecified (ICD-10) Spinal stenosis ?M48.00 - Spinal stenosis, site unspecified (ICD-10) Gout ?M10.9 - Gout, unspecified (ICD-10) Splenic artery aneurysm ?I72.8 - Aneurysm of other specified arteries (ICD-10) Hyperlipidemia ?E78.5 - Hyperlipidemia, unspecified (ICD-10) Depression ?F32.A - Depression, unspecified (ICD-10) Hypertension ?I10 - Essential (primary) hypertension (ICD-10) Diabetes 1.5, managed as type 1 ?E13.9 - Other specified diabetes mellitus without complications (ICD-10) Closed rib fracture ?S22.39XA - Fracture of one rib, unspecified side, initial encounter for closed fracture (ICD-10) Family History Father Colon cancer Sister Diabetes Brother Throat cancer Social History (Updated 11/20/22 @ 15:45 by Mao Dutta MD) Narrative: Previously lived in senior apartment at [facility] until August 2022. She fell and sustained a humerus fracture and has been at [address] [place] [address] since then. She has help with medications and cleaning. Denies tobacco, EtOH, recreational drugs. POLST states DNR/DNI. Highest level of school completed/degree received: high school graduate Smoking Status: Never smoker Do you use any of these nicotine containing products: None Second hand tobacco smoke exposure: No How often do you have a drink containing alcohol: never How often do you have six or more drinks on one occasion: Never AUDIT-C Alcohol total score: 0 Non-prescribed substance use: denies use Exam Const: Vital Signs, click to edit/add: Vital Signs - 24 hr 11/19/22 23:28 11/20/22 03:34 11/20/22 04:37 Pulse Rate [Pulse Oximeter] 67 56 L 59 L Respiratory Rate 16 14 16 Blood Pressure [Le ft Upper Arm] 137/61 140/55 H Pulse Oximetry 92 94 95 Oxygen Delivery Me thod Room Air Room Air Room Air Course Course Hospital Course: Patient seen examined, prior records reviewed as well as [facility] records. Patient with history of dementia and outburst who has increasing behavioral concerns tonight, refusing to take medications. It sounds like they have been making some medication adjustments including decreasing her oxycodone and starting fentanyl patches. Appears patient was started on Seroquel a couple days ago both scheduled and p.r.n.. On exam here, patient is initially yelling but then is little bit more cooperative during the course of my exam. Has responded well to Zyprexa in the past. Basic medical screening exam will be done with labs and urinalysis is patient has had worsening behavioral outbursts in the setting of urinary tract infection in the past. Reevaluation(s) Reevaluation #1: Patient has had intermittent outbursts of yelling and crying out ?help me ? throughout the night. We tried Zyprexa 5 mg IM, Ativan 1 mg IM, and finally Haldol 10 mg IM. She does not appear to be in any pain. She will need a geriatric psych assessment prior to returning to [facility]. Vital Signs Vital signs: Initial Vital Signs Temperature 98.9 F 11/19/22 20:01 Temperature Source Temporal Artery Scan 11/19/22 20:01 Pulse Rate 101 H 11/19/22 20:01 Respiratory Rate 16 11/19/22 20:01 Blood Pressure 152/94 H 11/19/22 20:01 Blood Pressure Mean 113 H 11/19/22 20:01 Pulse Oximetry 95 11/19/22 20:01 Oxygen Delivery Method Room Air 11/19/22 20:01 Vital Signs Temperature 98.9 F 11/19/22 20:01 Pulse Rate 101 H 11/19/22 20:01 Respiratory Rate 16 11/19/22 20:01 Blood Pressure 152/94 H 11/19/22 20:01 Pulse Oximetry 95 11/19/22 20:01 Oxygen Delivery Method Room Air 11/19/22 20:01 Temperature 97 F L 11/20/22 19:00 Pulse Rate 66 11/20/22 19:00 Respiratory Rate 24 11/20/22 19:00 Blood Pressure 125/54 L 11/20/22 19:00 Pulse Oximetry 93 11/20/22 19:00 Oxygen Delivery Method Nasal Cannula 11/20/22 19:00 Oxygen Flow Rate 1 11/20/22 19:00 Medical Decision Making Lab Data Labs: Lab Results 11/19/22 11/19/22 Range/Units 20:26 21:01 WBC 9.20 (4.50-11.00) K/uL RBC 4.41 (4.00-5.20) m/uL Hgb 12.8 (12.0-16.0) gm/dL Hct 41.4 (33.0-51.0) % MCV 94 (80-100) fL MCH 29 (26-34) pg MCHC 31 L (32-36) gm/dL RDW Coeff of Amy 13.4 (11.5-15.5) % Plt Count 222 (140-440) K/uL Neut % (Auto) 64.8 (42.0-72.0) % Lymph % (Auto) 22.2 (20-44) % [place] % (Auto) 9.9 (0.0-11.0) % Eos % (Auto) 2.8 (0.0-7.0) % Baso % (Auto) 0.2 (0.0-3.0) % Neut # (Auto) 5.96 (1.7-7.0) K/uL Lymph # (Auto) 2.04 (0.90-2.90) K/uL [place] # (Auto) 0.90 (0.00-0.90) K/UL Eos # (Auto) 0.26 (0.00-0.50) K/uL Baso # (Auto) 0.02 (0.00-0.30) K/uL Sodium 139 (135-149) mmol/L Potassium 4.2 (3.6-5.1) mmol/L Chloride 99 (96-114) mmol/L Carbon Dioxide 31 (20-32) mmol/L BUN 30 (7-30) mg/dL Creatinine 1.4 (0.5-1.5) mg/dL Estimated GFR 37 ml/min Glucose 163 H (60-115) mg/dL Calcium 10.3 (8.4-10.6) mg/dL Urine Color Yellow (Yellow) Urine Appearance Clear (Clear) Urine pH 5.0 (5.0-8.5) Ur Specific [place] 1.025 (1.000-1.030) Urine Protein Negative (Negative) Urine Glucose (UA) Negative (Negative) Urine Ketones Trace A (Negative) Urine Blood Negative (Negative) Urine Nitrite Negative (Negative) Urine Bilirubin 1+ A (Negative) Urine Urobilinogen 0.2 (0.2-1.0) Ur Leukocyte Esterase Negative (Negative) Urine RBC 0-2 (0-2) Urine WBC 0-2 (0-5) Ur Squamous Epith Cells Few (None-Few) Urine Bacteria Few A (None) Discharge Plan Discharge Clinical Impression: Outbursts of explosive behavior, Dementia, Chronic pain Patient Disposition: Admitted As Inpatient Condition: Stable Activity Level: Other
[2022-11-20] MEDS: HALOPERIDOL 5 MG/ML INJ 10 MG IM (07:21)
--- NOTE | 2022-11-20 07:36 | ED.NURSE ---
Pt was given 10mg haldol left thigh and was given a head massage and pt is currently sleeping. starch treating assistant from upstairs is currenty sitting with patient and providing a 1:1
[2022-11-20] MEDS: OxyCODONE/APAP 5-325 TABLET 1 TAB PO (09:36)
--- NOTE | 2022-11-20 11:49 | ED.NURSE ---
Blood sugar 86 at this time.
--- NOTE | 2022-11-20 12:10 | CRLHL7_ITS ---
For Patients: As a result of the Century Cures Act, medical imaging exams and procedure reports are released immediately into your electronic medical record. You may view this report before your referring provider. If you have questions, please contact your health care provider. Indication: Pain. Technique: Pelvis/right hip, 3 views. Comparison: August 08, 2018. Findings/Impression: Bones: Demineralization. Prior right femoral neck surgical screw fixation. Chronic deformity of the inferior pubic ramus. Osteitis pubis. Alignment is normal. No definite displaced fractures or bone lesions on this limited study secondary to demineralization and body habitus. Joint spaces: Unremarkable. Soft tissues: Unremarkable. Dictated by Geo Lynch MD @ 11/20/2022 12:54:20 PM (Electronically Signed)
[2022-11-20] MEDS: diphenhydrAMINE 50 MG/ML inj 25 MG IM (12:48)
[2022-11-20] MEDS: fentaNYL 25 MCG/HR PATCH 1 PATCH TRANSDERMA (13:16)
[2022-11-20] MEDS: DIVALPROEX SODIUM 125 MG CAP.DR.SPR 250 MG PO ×2 (13:19→22:21)
[2022-11-20] MEDS: FUROSEMIDE 20 MG TABLET PO (13:20)
--- NOTE | 2022-11-20 13:22 | PC.SOCIAL ---
Social work referral for geriatric psych placement. municipal maintenance worker contacted inpatient geriatric mental health facilities that have ability to take patient with her parameters. Contacted the following: [facility] [phone] [place] No Available beds [facility] [phone] [place] No available beds [facility] [phone] [place] Left message to call back Social work to follow up as needed
[2022-11-20] MEDS: OLANZapine 5 MG/ML inj 10 MG IM (13:46)
--- NOTE | 2022-11-20 13:48 | ED.NURSE ---
Blood sugar check last was 82, patient sipping on OJ periodically. Pharmacist to reprofile insulin to tomorrow. Refusing to eat, will take bites of yogurt with medications. Continuing to yell, medications administered with little effect. Plan to admit to the floor given inability to find a bed in a [facility] facility.
--- NOTE | 2022-11-20 14:07 | PC.SOCIAL ---
Social work received call from [facility] asking for update on plan for Faina. Informed on likely admission to med/surg due to no openings at [facility]iatric Mental health facilities. They will hold her bed. Social work contacted daughter/POA, Gia Finney [phone] and informed her about no success in finding a geriatric mental health facility yet for her mother and likely admission to med/surg for weekend. Informed that Social work with follow up on Wednesday11/24/2022.
--- NOTE | 2022-11-20 14:15 | ED.NURSE ---
Updated daughter, Shannan, on plan of care and transition to med/surg unit.
[2022-11-20 14:38] VITALS: RESP 24; O2SAT 87
--- NOTE | 2022-11-20 15:18 | PC.NURSE ---
Nursing Care Hours: [id number] Pt this shift brought up from ED at 1410, asleep in bed. Physical assessment and VS done, pt remained asleep. Left LE has open wound with yellow-puss filled center draining clear serous fluid, no redness surrounding wound. Area washed with Vash, Mepilex applied. R LE has dry scaly lesions, unopened with light red boarder extending out from wound area. Red outlined with blue pen. Bilat 3+ pitting edema in feet to ankles and 1+ pitting edema lower legs bilat. LS clear and diminished. Placed on 0.5 L O2 via NC while sleeping and taking shallow breaths.
--- NOTE | 2022-11-20 15:36 | PM.IMHP1 ---
Documented by User: Mao Dutta MD 11/20/22 23:01 Hospitalist- H&P: HPI History of Present Illness Date Seen: 11/20/22 Chief complaint: Dementia Narrative: Faina Nation is a 82 year old female with dementia with agitation resident of [facility] who is referred to our emergency room for uncontrolled behavior. She has been refusing to take her medications. She has been yelling and she has been quite agitated. She is on multiple medications including Seroquel, Ativan, Haldol and opioid medications. As recently as 2 months ago she was living in senior assisted living in [place]. At that time she fell sustaining a humeral fracture and has been in the residential since then. When I see the patient she is sleeping and difficult to arouse. Unable to give a history initially. She has received multiple medications for sedation in the emergency department. Review of Systems Narrative: Unable to obtain [facility] Medical History (Updated 11/20/22 @ 23:01 by Mao Dutta MD) COPD (chronic obstructive pulmonary disease) ?J44.9 - Chronic obstructive pulmonary disease, unspecified (ICD-10) Fracture of femoral neck, right, closed ?S72.001A - Fracture of unspecified part of neck of right femur, initial encounter for closed fracture (ICD-10) POLST (Physician Orders for Life-Sustaining Treatment) ?Z78.9 - Other specified health status (ICD-10) Fall (09/15/22) ?W19.XXXA - Unspecified fall, initial encounter (ICD-10) UTI (urinary tract infection) (~08/01/22) ?N39.0 - Urinary tract infection, site not specified (ICD-10) Left rib fracture (~08/01/22) ?S22.32XA - Fracture of one rib, left side, initial encounter for closed fracture (ICD-10) Fibula fracture (~08/01/22) ?S82.409A - Unspecified fracture of shaft of unspecified fibula, initial encounter for closed fracture (ICD-10) Dementia ?F03.90 - Unspecified dementia, unspecified severity, without behavioral disturbance, psychotic disturbance, mood disturbance, and anxiety (ICD-10) Fall (~06/25/22) ?W19.XXXA - Unspecified fall, initial encounter (ICD-10) Closed fracture of ramus of right pubis (~08/01/22) ?S32.591A - Other specified fracture of right pubis, initial encounter for closed fracture (ICD-10) Iron deficiency anemia ?D50.9 - Iron deficiency anemia, unspecified (ICD-10) GERD (gastroesophageal reflux disease) ?K21.9 - Gastro-esophageal reflux disease without esophagitis (ICD-10) Vitamin D deficiency ?E55.9 - Vitamin D deficiency, unspecified (ICD-10) Hypomagnesemia ?E83.42 - Hypomagnesemia (ICD-10) Urinary incontinence ?R32 - Unspecified urinary incontinence (ICD-10) Leg weakness ?R29.898 - Other symptoms and signs involving the musculoskeletal system (ICD-10) Cerebral atrophy ?G31.9 - Degenerative disease of nervous system, unspecified (ICD-10) Spinal stenosis ?M48.00 - Spinal stenosis, site unspecified (ICD-10) Gout ?M10.9 - Gout, unspecified (ICD-10) Splenic artery aneurysm ?I72.8 - Aneurysm of other specified arteries (ICD-10) Hyperlipidemia ?E78.5 - Hyperlipidemia, unspecified (ICD-10) Depression ?F32.A - Depression, unspecified (ICD-10) Hypertension ?I10 - Essential (primary) hypertension (ICD-10) Diabetes 1.5, managed as type 1 ?E13.9 - Other specified diabetes mellitus without complications (ICD-10) Closed rib fracture ?S22.39XA - Fracture of one rib, unspecified side, initial encounter for closed fracture (ICD-10) Family History Father Colon cancer Sister Diabetes Brother Throat cancer Social History (Updated 11/20/22 @ 15:45 by Mao Dutta MD) Narrative: Previously lived in senior apartment at [facility] until August 2022. She fell and sustained a humerus fracture and has been at [address] [place] [address] since then. She has help with medications and cleaning. Denies tobacco, EtOH, recreational drugs. POLST states DNR/DNI. Highest level of school completed/degree received: high school graduate Smoking Status: Never smoker Do you use any of these nicotine containing products: None Second hand tobacco smoke exposure: No How often do you have a drink containing alcohol: never How often do you have six or more drinks on one occasion: Never AUDIT-C Alcohol total score: 0 Non-prescribed substance use: denies use Meds Home Medications and Allergies Home Medications Medication Instructions Recorded Confirmed Type bismuth subsalicylate 262 mg 2 tab PO Q6H PRN diarrhea 09/15/22 11/20/22 History chewable tablet (Bismatrol) insulin glargine 100 unit/mL (3 25 unit subcut Q24H 09/15/22 11/20/22 History mL) subcutaneous pen (Lantus Solostar U-100 Insulin) loperamide 2 mg tablet 2 mg PO QID PRN 09/15/22 11/20/22 History (Anti-Diarrheal (loperamide)) metoprolol succinate 50 mg 50 mg PO DAILY blood pressure 09/15/22 11/20/22 History tablet,extended release 24 hr oxycodone 5 mg tablet 5 mg PO Q2H PRN moderate pain 09/15/22 11/20/22 History polyethylene glycol 3350 17 gram 17 g PO DAILY 09/15/22 11/20/22 History oral powder packet (Gavilax) sertraline 100 mg tablet 100 mg PO DAILY depressive disorder 09/15/22 11/20/22 History fentanyl 25 mcg/hr transdermal 1 patch topical Q3D 11/20/22 11/20/22 History patch furosemide 40 mg tablet 40 mg PO BID 11/20/22 11/20/22 History lidocaine 4 % topical patch 1 patch topical Q24H 11/20/22 11/20/22 History (Lidocaine Pain Relief) lisinopril 20 mg tablet 20 mg PO DAILY 11/20/22 11/20/22 History lorazepam 0.5 mg tablet 0.5 mg PO TID 11/20/22 11/20/22 History quetiapine 25 mg tablet 25 mg PO BID 11/20/22 11/20/22 History quetiapine 50 mg tablet 50 mg PO QPM 11/20/22 11/20/22 History sennosides 8.6 mg capsule (senna) 17.2 mg PO BID 11/20/22 11/20/22 History trazodone 100 mg tablet 100 mg PO QPM 11/20/22 11/20/22 History Allergies Allergy/AdvReac Type Severity Reaction Status Date / Time bupropion [From Wellbutrin] Allergy Verified 09/15/22 14:46 morphine Allergy Verified 09/15/22 14:46 Sulfa (Sulfonamide Allergy Verified 09/15/22 14:46 Antibiotics) Exam Narrative: Exam Narrative: She is sleeping and difficult to arouse secondary to sedation. Breathing comfortably. O2 sats in the low 90s on 1/2 L per nasal cannula. Examination later shows that she is alert. She has been able to eat some food with some medicine tonight. She is mildly restless. Breathing is unlabored. Respirations are clear to auscultation. Cardiovascular: S1, S2, regular rate and rhythm. Abdomen: Bowel sounds active. Abdomen is soft without tenderness or mass. Lower extremities notable for 2+ edema. She has chronic venous stasis changes above both ankles. On the left she has an ulcer which is open and on the right she has chronic skin changes with mild erythema in a palm sized area on the medial distal tibia. Const: Vital Signs, click to edit/add: Vital Signs - 24 hr 11/19/22 20:01 11/19/22 23:28 11/20/22 03:34 Temperature 98.9 F Pulse Rate [Pulse Oximeter] 101 H 67 56 L Respiratory Rate 16 16 14 Blood Pressure [Le ft Upper Arm] 152/94 H 137/61 Pulse Oximetry 95 92 94 Oxygen Delivery Me thod Room Air Room Air Room Air 11/20/22 04:37 11/20/22 14:38 Temperature Pulse Rate [Pulse Oximeter] 59 L Respiratory Rate 16 24 Blood Pressure [Le ft Upper Arm] 140/55 H Pulse Oximetry 95 87 L Oxygen Delivery Me thod Room Air Room Air Documenting provider has reviewed patient's vital signs: yes Hospitalist - H&P: Result Labs Labs: Short CBC 11/19/22 Range/Units 20:26 WBC 9.20 (4.50-11.00) K/uL Hgb 12.8 (12.0-16.0) gm/dL Hct 41.4 (33.0-51.0) % Plt Count 222 (140-440) K/uL BMP 11/19/22 20:26 Sodium 139 Potassium 4.2 Chloride 99 Carbon Dioxide 31 BUN 30 Creatinine 1.4 Glucose 163 H Calcium 10.3 Urine 11/19/22 Range/Units 21:01 Urine Color Yellow (Yellow) Urine Appearance Clear (Clear) Urine pH 5.0 (5.0-8.5) Ur Specific [place] 1.025 (1.000-1.030) Urine Protein Negative (Negative) Urine Glucose (UA) Negative (Negative) Assessment and Plan Assessment and plan (1) Outbursts of explosive behavior: Problem comment: Marked decline in mental status and behaviors over the last couple months. Possibly related to increased number of medications, opiates, benzodiazepines and other medications used for symptom relief? Appears to need geriatric psych evaluation and treatment. Would like to taper off of benzodiazepines. Taper off opioids if possible. Status: Acute (2) Dementia: Problem comment: Marked recent decline. Status: Acute (3) Hypoxia: Problem comment: May need oxygen while she is on opioids for pain with her underlying COPD. Does not appear to have a COPD exacerbation at this time Status: Acute Plan Admit to the hospital for management of behavioral problems, polypharmacy and assessment for ongoing plan of care. Total time spent is 60 minutes, 50 minutes in coordination of care. Documented by User: Moisés Byrnes MD 11/20/22 22:39 Hospitalist- H&P: HPI History of Present Illness Date Seen: 11/20/22 Chief complaint: Dementia [facility] Medical History (Updated 11/20/22 @ 23:01 by Mao Dutta MD) COPD (chronic obstructive pulmonary disease) ?J44.9 - Chronic obstructive pulmonary disease, unspecified (ICD-10) Fracture of femoral neck, right, closed ?S72.001A - Fracture of unspecified part of neck of right femur, initial encounter for closed fracture (ICD-10) POLST (Physician Orders for Life-Sustaining Treatment) ?Z78.9 - Other specified health status (ICD-10) Fall (09/15/22) ?W19.XXXA - Unspecified fall, initial encounter (ICD-10) UTI (urinary tract infection) (~08/01/22) ?N39.0 - Urinary tract infection, site not specified (ICD-10) Left rib fracture (~08/01/22) ?S22.32XA - Fracture of one rib, left side, initial encounter for closed fracture (ICD-10) Fibula fracture (~08/01/22) ?S82.409A - Unspecified fracture of shaft of unspecified fibula, initial encounter for closed fracture (ICD-10) Dementia ?F03.90 - Unspecified dementia, unspecified severity, without behavioral disturbance, psychotic disturbance, mood disturbance, and anxiety (ICD-10) Fall (~06/25/22) ?W19.XXXA - Unspecified fall, initial encounter (ICD-10) Closed fracture of ramus of right pubis (~08/01/22) ?S32.591A - Other specified fracture of right pubis, initial encounter for closed fracture (ICD-10) Iron deficiency anemia ?D50.9 - Iron deficiency anemia, unspecified (ICD-10) GERD (gastroesophageal reflux disease) ?K21.9 - Gastro-esophageal reflux disease without esophagitis (ICD-10) Vitamin D deficiency ?E55.9 - Vitamin D deficiency, unspecified (ICD-10) Hypomagnesemia ?E83.42 - Hypomagnesemia (ICD-10) Urinary incontinence ?R32 - Unspecified urinary incontinence (ICD-10) Leg weakness ?R29.898 - Other symptoms and signs involving the musculoskeletal system (ICD-10) Cerebral atrophy ?G31.9 - Degenerative disease of nervous system, unspecified (ICD-10) Spinal stenosis ?M48.00 - Spinal stenosis, site unspecified (ICD-10) Gout ?M10.9 - Gout, unspecified (ICD-10) Splenic artery aneurysm ?I72.8 - Aneurysm of other specified arteries (ICD-10) Hyperlipidemia ?E78.5 - Hyperlipidemia, unspecified (ICD-10) Depression ?F32.A - Depression, unspecified (ICD-10) Hypertension ?I10 - Essential (primary) hypertension (ICD-10) Diabetes 1.5, managed as type 1 ?E13.9 - Other specified diabetes mellitus without complications (ICD-10) Closed rib fracture ?S22.39XA - Fracture of one rib, unspecified side, initial encounter for closed fracture (ICD-10) Family History Father Colon cancer Sister Diabetes Brother Throat cancer Social History (Updated 11/20/22 @ 15:45 by Mao Dutta MD) Narrative: Previously lived in senior apartment at [facility] until August 2022. She fell and sustained a humerus fracture and has been at [address] [place] [address] since then. She has help with medications and cleaning. Denies tobacco, EtOH, recreational drugs. POLST states DNR/DNI. Highest level of school completed/degree received: high school graduate Smoking Status: Never smoker Do you use any of these nicotine containing products: None Second hand tobacco smoke exposure: No How often do you have a drink containing alcohol: never How often do you have six or more drinks on one occasion: Never AUDIT-C Alcohol total score: 0 Non-prescribed substance use: denies use Meds Home Medications and Allergies Home Medications Medication Instructions Recorded Confirmed Type bismuth subsalicylate 262 mg 2 tab PO Q6H PRN diarrhea 09/15/22 11/20/22 History chewable tablet (Bismatrol) insulin glargine 100 unit/mL (3 25 unit subcut Q24H 09/15/22 11/20/22 History mL) subcutaneous pen (Lantus Solostar U-100 Insulin) loperamide 2 mg tablet 2 mg PO QID PRN 09/15/22 11/20/22 History (Anti-Diarrheal (loperamide)) metoprolol succinate 50 mg 50 mg PO DAILY blood pressure 09/15/22 11/20/22 History tablet,extended release 24 hr oxycodone 5 mg tablet 5 mg PO Q2H PRN moderate pain 09/15/22 11/20/22 History polyethylene glycol 3350 17 gram 17 g PO DAILY 09/15/22 11/20/22 History oral powder packet (Gavilax) sertraline 100 mg tablet 100 mg PO DAILY depressive disorder 09/15/22 11/20/22 History fentanyl 25 mcg/hr transdermal 1 patch topical Q3D 11/20/22 11/20/22 History patch furosemide 40 mg tablet 40 mg PO BID 11/20/22 11/20/22 History lidocaine 4 % topical patch 1 patch topical Q24H 11/20/22 11/20/22 History (Lidocaine Pain Relief) lisinopril 20 mg tablet 20 mg PO DAILY 11/20/22 11/20/22 History lorazepam 0.5 mg tablet 0.5 mg PO TID 11/20/22 11/20/22 History quetiapine 25 mg tablet 25 mg PO BID 11/20/22 11/20/22 History quetiapine 50 mg tablet 50 mg PO QPM 11/20/22 11/20/22 History sennosides 8.6 mg capsule (senna) 17.2 mg PO BID 11/20/22 11/20/22 History trazodone 100 mg tablet 100 mg PO QPM 11/20/22 11/20/22 History Allergies Allergy/AdvReac Type Severity Reaction Status Date / Time bupropion [From Wellbutrin] Allergy Verified 09/15/22 14:46 morphine Allergy Verified 09/15/22 14:46 Sulfa (Sulfonamide Allergy Verified 09/15/22 14:46 Antibiotics) Assessment and Plan Assessment and plan (1) Outbursts of explosive behavior: Problem comment: Marked decline in mental status and behaviors over the last couple months. Possibly related to increased number of medications, opiates, benzodiazepines and other medications used for symptom relief? Appears to need geriatric psych evaluation and treatment. Would like to taper off of benzodiazepines. Taper off opioids if possible. Status: Acute (2) Dementia: Problem comment: Marked recent decline. Status: Acute (3) Hypoxia: Problem comment: May need oxygen while she is on opioids for pain with her underlying COPD. Does not appear to have a COPD exacerbation at this time Status: Acute
[2022-11-20 15:50] VITALS: O2SAT 93
[2022-11-20 19:00] VITALS: BP 125/54; PULSE 66; RESP 24; TEMP 36.1; O2SAT 93
[2022-11-20] MEDS: LIDOCAINE 5% PATCH 1 PATCH TRANSDERMA (20:06)
[2022-11-20] MEDS: OXYCODONE 5 MG TABLET PO (22:20)
[2022-11-20] MEDS: DIVALPROEX DELAYED RELEASE 250 MG TABLET PO (22:23)
[2022-11-20 23:00] VITALS: RESP 20; O2SAT 91
--- NOTE | 2022-11-20 23:10 | PC.NURSE ---
Shift [id number]- Patient is asleep this afternoon and into evening. She wakes this evening and is increasingly agitated, increasingly non-redirectable. PRN administered- see eMAR. She refuses to take medication, however both times she reluctantly agreed to open her mouth and accept pudding, she held in mouth and spit out eventually. She was offered food/drinks and largely refused, though did become agreeable at one point. She fed herself only if RN passed bite sized pieces into her hand for her. Some medications were able to be administered within food during this time. She sometimes makes lucid sounding statements, though will also want to go back to her parent's house, for instance. She is turned and repositioned at least q2 throughout shift, with pillows for offloading.
[2022-11-21] MEDS: OLANZapine 5 MG/ML inj IM ×2 (02:27→08:35)
[2022-11-21 07:00] VITALS: PULSE 108; PULSE 66; RESP 20; RESP 22; TEMP 36.6; O2SAT 91
[2022-11-21] MEDS: LORazepam 0.5 MG TABLET 0.25 MG PO ×2 (08:27→13:55)
[2022-11-21] MEDS: QUETIAPINE 25 MG TABLET 50 MG PO (08:28)
[2022-11-21] MEDS: SERTRALINE 100 MG TABLET PO (08:29)
[2022-11-21] MEDS: HALOPERIDOL 5 MG/ML INJ 1 MG IM (08:59)
[2022-11-21] MEDS: MORPHINE 4 MG/ML INJ IM ×5 (09:00→23:50)
--- NOTE | 2022-11-21 09:34 | PC.NURSE ---
Shift note from [id number]: Once pt awoke, screaming out Help without redirection, pt continuously reassured by RN you are safe, we are here for you. However pt unable to be redirected. Pt hitting at staff and biting when attempting cares. Pt spit out most of medications when attempting to give crushed in . refused breakfast. BG 108, linsulins held d/t not meeting sliding scale requirements and refusing to eat for long acting. Dr. Mckeon updated. Zyprexa IM given, Pt not showing therapeutic effects. Haldol IM given with IM morphine, pt showing therapeutic effects shortly after. transferred back to bed via cieling lift and brief changed/perineal cares done. Oral cares done while patient sleeping (mouth swab and vaseline). Fentanyl patch intact to left upper chest. Lido patch removed from right upper back/shoulder. dressing intact to left santos. right santos wound scabbed, dry and ALEXIS. no new signs of pressure or wounds noted. 1L02 placed when sleeping. Dtrs have been updated by Dr. Mckeon. Family agreed for patient to go comfort cares. Pt currently sleeping in bed, pulse ox monitor on. For any updates going forward- ELBERT (DTR) HAS REQUESTED TO BE POINT OF CONTACT. PHONE NUMBER [phone].
--- NOTE | 2022-11-21 09:55 | PM.IMPN1 ---
Progress Note: A&P Assessment and plan (1) Outbursts of explosive behavior: Problem details: Marked decline in mental status and behaviors over the last couple months. Possibly related to increased number of medications, opiates, benzodiazepines and other medications used for symptom relief? Appears to need geriatric psych evaluation and treatment. Would like to taper off of benzodiazepines. Taper off opioids if possible. Status: Acute (2) Dementia: Problem details: Marked recent decline. Status: Acute (3) POLST (Physician Orders for Life-Sustaining Treatment): Problem details: DNR and DNI Status: Acute (4) Chronic pain: Status: Chronic Plan - 11/21/22 patient appears uncomfortable. Daughters do not want any further investigation and desire for her to be comfort cares only at this point. I have reviewed her current medications and scaled down including stopping insulin, especially since she is no longer eating at this time. I have started medications for comfort and we will discuss hospice further as we see how she does this weekend. Time Spent With Patient Total time spent: Today I spent 45 minutes rounding on the patient. Greater than 50% included discussing care with the patient's daughters, the team, reviewing data, updating and managing the care plan. Subjective Time Seen by Provider: 08:34 Date Seen: 11/21/22 Interval history: Faina had a lot of agitation and calling out overnight and again this morning. She continued to call out ?help me help me.? This was her answer to any question that we asked. Only once did she answer something different and that is when I asked her if she was in pain. She said ?belly.? I spoke with her daughter, Maribeth, who is her POA, this morning. We discussed goals of care. Maribeth noted that Faina has been declining and has previously said that she does not want any surgery or anything invasive. We discussed the possibility of comfort cares. Maribeth wanted to talk with her sisters about this. Later in the morning I received a phone call from the patient's other daughter, Shalini. Danielle said that after discussing it she and her sisters would like Faina to be comfort cares and to consider hospice depending on how the weekend went. They did not want any further investigation or studies. Danielle noted that her other 2 sisters were out of town with spotty cellphone coverage and asked to be the 1st contact this weekend. Exam Narrative: Exam Narrative: General: Calling out ?help me help me. Looks uncomfortable and in pain. Not answering questions. Awake, alert, anxious. No pallor. No jaundice. Oropharynx: Clear. Mucous membranes moist. Cardiovascular: Regular rate and rhythm. No murmurs, gallops, or rubs. Respiratory: Clear to auscultation bilaterally. No wheezes or crackles. Abdomen: Bowel sounds present. Soft, nondistended, nontender. Extremities: Chronic skin changes noted on distal medial right santos. Const: Vital Signs, click to edit/add: Vital Signs - 24 hr 11/20/22 14:38 11/20/22 15:50 11/20/22 19:00 Temperature 97 F L Pulse Rate [Pulse Oximeter] 66 Respiratory Rate 24 24 Blood Pressure [Ri ght Arm] 125/54 L Pulse Oximetry 87 L 93 93 Oxygen Delivery Me thod Room Air Nasal Cannula Nasal Cannula Oxygen Flow Rate 0.5 1 11/20/22 23:00 11/20/22 23:00 11/20/22 23:00 Temperature Pulse Rate [Pulse Oximeter] Respiratory Rate 20 20 Blood Pressure [Ri ght Arm] Pulse Oximetry 91 Oxygen Delivery Me thod Room Air Oxygen Flow Rate 11/21/22 07:00 11/21/22 07:00 11/21/22 07:00 Temperature 98 F Pulse Rate [Pulse Oximeter] 108 H 66 Respiratory Rate 20 22 Blood Pressure [Ri ght Arm] Pulse Oximetry 91 91 Oxygen Delivery Me thod Room Air Room Air Oxygen Flow Rate 0 Documenting provider has reviewed patient's vital signs: yes
[2022-11-21] MEDS: MORPHINE 10 MG/0.5 ML ORAL SOLN PO ×3 (13:43→17:40)
--- NOTE | 2022-11-21 14:53 | NUTR.NU ---
Patient has been resting quietly after medications administered. turn and repo Q2H. Pt did wake up and swing at staff during 1430 repo but fell asleep shortly after. MD guthrie. TISH reviewed with for comfort cares and plan.
[2022-11-21 15:00] VITALS: PULSE 66; RESP 20; RESP 22; O2SAT 91
[2022-11-21 16:00] VITALS: PULSE 68; RESP 20; O2SAT 92
[2022-11-21] MEDS: haloperidoL 5 MG TABLET PO (17:54)
[2022-11-21] MEDS: fentaNYL 25 MCG/HR PATCH 1 PATCH TRANSDERMA (20:15)
[2022-11-21] MEDS: LIDOCAINE 5% PATCH 1 PATCH TRANSDERMA (20:47)
[2022-11-21] MEDS: HALOPERIDOL 5 MG/ML INJ IM (21:08)
--- NOTE | 2022-11-21 22:48 | PC.NURSE ---
Shift [id number]- Patient restless, agitated with occasional yelling out. PRN medication provided- see eMAR. She is turned and repositioned with pillows for offloading, though moves around in bed while restless. She currently appears restful. Refuses anything orally.
[2022-11-21] MEDS: LORazepam 1 MG TABLET PO (22:57)
[2022-11-21 23:00] VITALS: RESP 20
[2022-11-21 23:30] VITALS: RESP 20
[2022-11-22] MEDS: HALOPERIDOL 5 MG/ML INJ IM (01:09)
[2022-11-22] MEDS: MORPHINE 4 MG/ML INJ IM ×5 (02:02→14:08)
[2022-11-22 04:41] VITALS: RESP 18
--- NOTE | 2022-11-22 06:11 | PC.NURSE ---
END OF SHIFT NOTE: PT WITH ADVANCED DEMENTIA. PT AGITATED; WILL YELL OUT ?HELP ME! HELP ME!? AND ?OH KILL ME.? SHELLFISH BED WORKER REASSURED PT THAT PT WAS SAFE AND BEING WELL CARED FOR. DECREASED AGITATION WITH THE USE OF PRN MORPHINE AND PRN HALOPERIDOL. TURN AND REPO Q2HR AND PRN. RESTFUL NIGHT?VS. ON RA.?MOUTH SWABBED WITH WET SPONGE AND VASELINE APPLIED TO LIPS. PT DID NOT EAT OR DRINK THIS SHIFT. BED ALARM ON AND CALL LIGHT WITHIN PT?S REACH. NO IV IN PLACE.?
[2022-11-22 07:00] VITALS: BP 108/53; PULSE 125; RESP 18; TEMP 36.6; O2SAT 65
[2022-11-22] MEDS: LORazepam 0.5 MG TABLET 0.25 MG PO (11:26)
[2022-11-22] MEDS: MORPHINE 10 MG/0.5 ML ORAL SOLN PO ×6 (12:12→23:13)
--- NOTE | 2022-11-22 13:45 | P.IMPN_ITS ---
Progress Note: A&P Assessment and plan (1) Outbursts of explosive behavior: Problem details: Marked decline in mental status and behaviors over the last couple months. Possibly related to increased number of medications, opiates, benzodiazepines and other medications used for symptom relief? Status: Acute (2) Dementia: Problem details: Marked recent decline. Status: Acute (3) POLST (Physician Orders for Life-Sustaining Treatment): Problem details: DNR and DNI Status: Acute (4) Chronic pain: Status: Chronic Plan Comfort has improved now on comfort cares. Daughter, Danielle, was here to visit today, but I did not get to talk with her. Continue comfort cares. Anticipate discharge to hospice when able. Subjective Time Seen by Provider: 07:35 Date Seen: 11/22/22 Interval history: Slept overnight. Occasionally calls out. She was calling out for her mother earlier and more recently called out ?take me away from here.? She does not respond to questions. She is no longer making eye contact. She stares off into the distance. Periods of awakening are very brief during which she is given medications for comfort. Exam Narrative: Exam Narrative: General: Confused. Calling out occasionally when due for next dose of morphine, otherwise calm, comfortable, and sleeping. Not answering questions or making eye contact. Cardiovascular: Tachycardia, regular. No murmurs, gallops, or rubs. Respiratory: Clear to auscultation bilaterally. No wheezes or crackles. Skin: No mottling. Const: Vital Signs, click to edit/add: Vital Signs - 24 hr 11/21/22 15:00 11/21/22 15:00 11/21/22 16:00 Temperature Pulse Rate [Pulse Oximeter] 66 68 Respiratory Rate 22 20 20 Blood Pressure [Ri ght Arm] Pulse Oximetry 91 92 Oxygen Delivery Me thod Room Air Room Air Oxygen Flow Rate 0 0 11/21/22 23:00 11/21/22 23:00 11/21/22 23:30 Temperature Pulse Rate [Pulse Oximeter] Respiratory Rate 20 20 20 Blood Pressure [Ri ght Arm] Pulse Oximetry Oxygen Delivery Me thod Room Air Oxygen Flow Rate 0 11/22/22 04:41 11/22/22 07:00 11/22/22 07:00 Temperature Pulse Rate [Pulse Oximeter] 125 H Respiratory Rate 18 18 18 Blood Pressure [Ri ght Arm] Pulse Oximetry 65 L Oxygen Delivery Me thod Room Air Oxygen Flow Rate 0 11/22/22 07:00 Temperature 97.9 F Pulse Rate [Pulse Oximeter] 125 H Respiratory Rate 18 Blood Pressure [[facility] Arm] 108/53 L Pulse Oximetry 65 L Oxygen Delivery Me thod Room Air Oxygen Flow Rate 0 Documenting provider has reviewed patient's vital signs: yes
[2022-11-22 15:00] VITALS: PULSE 125; RESP 18; O2SAT 65
[2022-11-22] MEDS: LORazepam 1 MG TABLET PO ×4 (15:53→23:13)
[2022-11-22 16:00] VITALS: RESP 18
[2022-11-22] MEDS: haloperidoL 5 MG TABLET PO (16:16)
[2022-11-22 22:27] VITALS: RESP 14; O2SAT 53
[2022-11-22 23:00] VITALS: PULSE 122; RESP 14
[2022-11-22] MEDS: HYOSCYAMINE SULFATE 0.125 MG TAB SUBLINGUAL (23:31)
--- NOTE | 2022-11-23 01:00 | PC.NURSE ---
LATE ENTRY NOTE FROM 11/20-11/21/22 @ 23-07: Pt awake most of the night yelling help me despite attempts by staff to comfort and redirect patient. IM Zyprexa given with little relief. Pt turned and repositioned with a 2 assist, incontinent, cj care given. Pt VSS on 1LPM.
--- NOTE | 2022-11-23 01:09 | PC.NURSE ---
Pt family hare.
[2022-11-23] MEDS: MORPHINE 10 MG/0.5 ML ORAL SOLN PO (04:27)
--- NOTE | 2022-11-23 07:22 | PC.NURSE ---
END OF SHIFT NOTE: PT TRANSITIONING TO END OF LIFE. COARSE RATTLE. PALE COLOR. COOL EXTREMITIES. PT FOAMING FROM MOUTH. MOUTH SWABBED WITH ORAL SPONGES TO WET MOUTH; VASELINE APPLIED DRY LIPS. FAMILY- ELBERT UPDATED @ 2300. FAMILY CALLED AGAIN @ 0010 FOR UPDATE OF PT DECLINE. FAMILY VISITED FROM APPROXIMATELY [phone]. NO ORAL INTAKE OF FOOD OR WATER. TURN AND REPOSITIONED WITH PILLOWS FOR OFFLOADING. BED ALARM ON AND CALL LIGHT WITHIN PT?S REACH.?
[2022-11-23 07:30] VITALS: RESP 14
--- NOTE | 2022-11-23 10:13 | PM.IMPN1 ---
Progress Note: A&P Assessment and plan (1) End of life care: Problem details: Continue comfort cares only. Anticipate within the next 24-48 hours. I discussed this with the patient's daughter and the daughter's today and recommended that people continue to visit today if they desire to so before . Status: Acute (2) Outbursts of explosive behavior: Problem details: Marked decline in mental status and behaviors over the last couple months. Possibly related to increased number of medications, opiates, benzodiazepines and other medications used for symptom relief? Status: Acute (3) Dementia: Problem details: Marked recent decline. Status: Acute Subjective Time Seen by Provider: 07:49 Date Seen: 11/23/22 Interval history: Faina has been less responsive overnight. Her breathing is changing, apneic at times and more rapid at times. Nurses report a rattle. Many family members have come to visit. Her daughter, Danielle, and Danielle's , Naseem, are here this morning. Danielle expressed gratitude and relief that Faina is comfortable after several months of ?being trapped in her own mind.? Danielle tells me that Faina son was here to visit yesterday and her 2 other daughters will be here today to visit. She has another son who has been somewhat estranged and it is not clear if he will visit or not. Exam Narrative: Exam Narrative: General: Peaceful. Upper airway rattle. No response to verbal or physical stimuli. Oropharynx: Clear. Mucous membranes dry. Const: Vital Signs, click to edit/add: Vital Signs - 24 hr 11/22/22 15:00 11/22/22 15:00 11/22/22 16:00 Pulse Rate [Pulse Oximeter] 125 H Respiratory Rate 18 18 18 Pulse Oximetry 65 L Oxygen Delivery Me thod Room Air Oxygen Flow Rate 0 11/22/22 22:27 11/22/22 23:00 Pulse Rate [Pulse Oximeter] 122 H Respiratory Rate 14 14 Pulse Oximetry 53 L Oxygen Delivery Me thod Room Air Oxygen Flow Rate 0 Documenting provider has reviewed patient's vital signs: yes
--- NOTE | 2022-11-23 12:18 | P.DS_ITS ---
Discharge Sum: Prov Provider Time Seen by Provider: 11:11 Date Seen: 11/23/22 Primary care physician: Linette Buckner MD Consults: 11/20/22 08:15 Consult to Underwriting Service Representative [CONS] Urgent Comment: Reason for Consult:: Social Service Consult Discharge Planning Needs 11/20/22 15:02 Consult to Underwriting Service Representative [CONS] Routine Comment: Reason for Consult:: Discharge Planning Needs Pronouncing clinician: Lexus Gomez Discharge Sum: Diag Contributing Factors (1) End of life care: (2) Outbursts of explosive behavior: (3) Dementia: (4) COPD (chronic obstructive pulmonary disease): Discharge Sum: Summary Date and Time Date of admission: 11/20/22 14:12 Date of : 11/23/22 Time of : 11:11 Summary Details: This is an 82-year-old female with a history of dementia who had been living at home independently earlier this year when she had a fall mid to end of August from which she suffered a right humerus fracture. This was non operative. She was then unable to care for herself at home and needed rehab for which she was transferred to [facility]. While in the [facility], she declined and had behavioral outbursts. She would frequently spit out her meds and cry out. As a result more and more medication was added to try to improve these behaviors. Her behaviors did not improve despite the addition of many medications and overall her mental status continued to decline. She was admitted to the hospital on 11/20/2022 for uncontrolled behavior and refusal to take medications. He was agitated and yelling, calling out. In discussion with family her goals of care did not include workup and they desired for her to be made comfortable only instead. She was transitioned to comfort cares on 11/21/2022 and peacefully today 11:11 a.m.. Family was notified by nursing staff. Corner was called due to right humeral fracture from fall in home 2-3 months ago. Additional Data Confirmation of as documented by pronouncing clinician: no pulse, no respirations, no heart sounds, pupils fixed and dilated and other (Patient did not respond to her name or painful stimuli. There were no spontaneous movements or spontaneous respirations. Pupils were fixed and dilated. No respiratory or cardiac sounds upon auscultation. Extremities were cool and mottled.) Family: contacted Attending physician: Lexus Gomez MD Was code activated?: No trial examiner notified?: Yes
--- NOTE | 2022-11-23 15:37 | PC.NURSE ---
PATIENT'S DAUGHTER AND LIZ IN ROOM THIS AM. PATIENT UNRESPONSIVE WITH REPOSITIONING. PATIENT PASSED AT 1111. DAUGHTER ERICA UPDATED. OPO NOTIFIED AND REINSURANCE CLAIM ANALYST CALLED. [facility] PICKED UP PATIENT AT 1240. SENT PATIENT WITH [place] RING ON TO LEFT RING FINGER. BELONGINGS BAG WITH PATIENT'S CLOTHES SENT WITH HOME.
== END 2022-11-23 12:45 | disposition expired ==
LOC: ED 11-20 13:36 → MEDSURG 11-20 14:12
PROVIDERS: Family Medicine; Admitting Provider Family Medicine; Emergency Provider Family Medicine; PCP Internal Medicine; Visit Provider Family Medicine
DX: R46.89 Other symptoms and signs involving appearance and behavior (principal); F03.90 Unspecified dementia, unspecified severity, without behavioral disturbance, psychotic disturbance, mood disturbance, and anxiety; R09.02 Hypoxemia; Z78.9 Other specified health status; G89.29 Other chronic pain; Z51.5 Encounter for palliative care; J44.9 Chronic obstructive pulmonary disease, unspecified
CPT/HCPCS: 36415; 73502; 80048; 81001; 82962; 85025; 87077; 87086; 87186; 96372; 99283; 99285; A0425; A0429; A9270; G0378; J1200; J1630; J2060; J2270; S0166